=== PATIENT | female | born 1970 | race Caucasian/White ===

== ENCOUNTER → 2018-05-08 17:03 | Outpatient (CLI) | payer OTHER, MEDICAID, SELFPAY | PROVIDERS: Visit Provider Naturopath | DX: M54.30 Sciatica, unspecified side (principal); E34.9 Endocrine disorder, unspecified; Z79.890 Hormone replacement therapy; Z00.00 Encounter for general adult medical examination without abnormal findings ==

== ENCOUNTER → 2018-05-09 16:25 | Outpatient (CLI) | payer OTHER, MEDICAID, SELFPAY ==
[2018-05-09 17:27] LABS: Add Manual Diff / Slide Review NO; Basophils Percent Auto 1.4 % (0-2); Eosinophils Percent Auto 2.8 % (2-4); Hematocrit 39.2 % (36-46); Hemoglobin 13.4 g/dL (12.0-16.0); Lymphocytes Percent Auto 48.8 % (25-40); Mean Corpuscular HGB Conc 34.2 % (30-36); Mean Corpuscular Hemoglobin 34.4 PG (26-34); Mean Corpuscular Volume 100.6 fL (80-100); Monocytes Percent Auto 18.3 % (3-14); Neutrophils Absolute Auto 1500 /uL (3000-5900); Neutrophils Percent Auto 28.7 % (50-75); Platelet Count 280 X10^3/uL (150-400); Red Cell Distribution Width 16.2 % (11.6-14.8); White Blood Cell Count 5.2 X10^3/uL (4.5-11.0)
[2018-05-09 17:51] LABS: Alanine Aminotransferase 78 IU/L (9-52); Albumin 4.5 g/dL (3.5-5.0); Albumin Globulin Ratio 1.4 (1.0-2.8); Alkaline Phosphatase 61 U/L (38-126); Aspartate Aminotransferase 84 IU/L (14-36); Bilirubin Total 0.8 mg/dL (0.2-1.3); Blood Urea Nitrogen 18 mg/dL (7-17); Calcium 9.6 mg/dL (8.4-10.2); Carbon Dioxide 30 mmol/L (22-32); Chloride 103 mmol/L (98-107); Estimated Glomerular Filt Rate > 60.0 mL/min (>60); Globulin 3.3 g/dL (1.7-4.1); Glucose 93 mg/dL (70-100); HEMOLYSIS < 15 (0-50); Potassium 4.3 mmol/L (3.4-5.1); Sodium 140 mmol/L (137-145); Total Protein 7.8 g/dL (6.3-8.2)
[2018-05-09 17:54] LABS: High Sensitivity CRP - Cardiac 1.1 mg/L (1.0-3.0)
[2018-05-09 18:10] LABS: Free T3, Triiodothyronine Free 4.48 pg/mL (2.77-5.27)
[2018-05-09 18:26] LABS: Ferritin 95.2 ng/mL (6.27-137); Testosterone 18.3 ng/dL (5.71-77.0)
[2018-05-11 14:02] LABS: Dehydroepiandrosterone Sulfate 60 mcg/dL (19-231)
[2018-05-11 16:09] LABS: Estradiol 28 pg/mL; Progesterone < 0.5 ng/mL
[2018-05-15 13:18] LABS: Triiodothyronine T3 Reverse 17 ng/dL (8-25)
== END ==
PROVIDERS: Visit Provider Naturopath
DX: E03.9 Hypothyroidism, unspecified (principal); Z00.00 Encounter for general adult medical examination without abnormal findings; E34.9 Endocrine disorder, unspecified; N94.3 Premenstrual tension syndrome; Z79.890 Hormone replacement therapy
CPT/HCPCS: 36415; 80053; 82627; 82670; 82728; 84144; 84403; 84481; 84482; 85025; 86140

== ENCOUNTER → 2018-05-20 14:30 | Outpatient (CLI) | payer OTHER, MEDICAID, SELFPAY ==
--- NOTE | 2018-05-20 14:32 | DI.RAD.S_ITS ---
PROCEDURE: XR FOOT RT MIN 3V INDICATIONS: Foreign body evaluation TECHNIQUE: 3 views of the foot were acquired. COMPARISON: None. FINDINGS: Bones: No fractures or dislocations. No suspicious bony lesions. Postoperative changes are present at the first MTP joint and the first TMT joint. Soft tissues: No tibiotalar joint effusion. Achilles tendon appears normal. IMPRESSION: 1. No unexpected radiopaque foreign bodies. 2. No findings to suggest osteomyelitis; however plain film is less sensitive in the acute phases of osteomyelitis. If there is high clinical suspicion for acute osteomyelitis, MRI with and without contrast is recommended. Dictated by: Louise Malcolm M.D. on 05/20/2018 at 15:04 Approved by: Louise Malcolm M.D. on 05/20/2018 at 15:05
== END ==
PROVIDERS: PCP Naturopath; Visit Provider Physician Assistant
DX: M79.671 Pain in right foot (principal)
CPT/HCPCS: 73630

== ENCOUNTER → 2019-03-12 16:22 | Outpatient (CLI) | payer OTHER, SELFPAY ==
[2019-03-12 17:40] LABS: Add Manual Diff / Slide Review NO; Basophils Absolute Auto 0 /uL (0-100); Basophils Percent Auto 0.9 % (0-2); Eosinophils Absolute Auto 100 /uL (0-450); Eosinophils Percent Auto 2.1 % (2-4); Hematocrit 42.1 % (36-46); Hemoglobin 13.9 g/dL (12.0-16.0); Lymphocytes Absolute Auto 2700 /uL (1100-4500); Mean Corpuscular HGB Conc 32.9 % (30-36); Mean Corpuscular Hemoglobin 33.5 PG (26-34); Mean Corpuscular Volume 101.7 fL (80-100); Monocytes Absolute Auto 300 /uL (0-900); Monocytes Percent Auto 6.8 % (3-14); Neutrophils Absolute Auto 1700 /uL (1500-7000); Neutrophils Percent Auto 35.2 % (50-75); Platelet Count 174 X10^3/uL (150-400); Red Blood Cell Count 4.14 X10^6/uL (4.0-5.2); Red Cell Distribution Width 14.3 % (11.6-14.8); White Blood Cell Count 4.9 X10^3/uL (4.5-11.0)
[2019-03-12 17:53] LABS: Alanine Aminotransferase 67 IU/L (9-52); Albumin 4.9 g/dL (3.5-5.0); Albumin Globulin Ratio 1.4 (1.0-2.8); Alkaline Phosphatase 62 U/L (38-126); Aspartate Aminotransferase 109 IU/L (14-36); Bilirubin Total 0.7 mg/dL (0.2-1.3); Blood Urea Nitrogen 9 mg/dL (7-17); Calcium 9.7 mg/dL (8.4-10.2); Carbon Dioxide 23 mmol/L (22-32); Chloride 104 mmol/L (98-107); Estimated Glomerular Filt Rate > 60.0 mL/min (>60); Globulin 3.4 g/dL (1.7-4.1); Glucose 88 mg/dL (70-100); HEMOLYSIS < 15 (0-50); Potassium 4.2 mmol/L (3.4-5.1); Sodium 143 mmol/L (137-145); Total Protein 8.3 g/dL (6.3-8.2)
[2019-03-12 17:57] LABS: High Sensitivity CRP - Cardiac 1.4 mg/L (1.0-3.0)
[2019-03-12 17:58] LABS: Erythrocyte Sedimentation Rate 10 MM/HR (0-20)
[2019-03-12 18:10] LABS: Vitamin D 25 Hydroxy (D3) 48.1 ng/mL (30.0-100.0)
[2019-03-12 18:13] LABS: Free T3, Triiodothyronine Free 5.81 pg/mL (2.77-5.27); Free T4, Direct Thyroxine 2.07 ng/dL (0.78-2.19)
[2019-03-12 18:26] LABS: Thyroid Stimulating Hormone 0.05 uIU/mL (0.47-4.68)
[2019-03-12 18:29] LABS: Testosterone 29.9 ng/dL (5.71-77.0)
[2019-03-14 14:37] LABS: Dehydroepiandrosterone Sulfate 117 mcg/dL (19-231)
== END ==
PROVIDERS: PCP Student in an Organized Health Care Education/Training Program; Visit Provider Naturopath
DX: Z00.00 Encounter for general adult medical examination without abnormal findings (principal); E03.9 Hypothyroidism, unspecified; R53.83 Other fatigue; E34.9 Endocrine disorder, unspecified; R68.82 Decreased libido
CPT/HCPCS: 36415; 80053; 82306; 82627; 84403; 84439; 84443; 84481; 85025; 85651; 86140

== ENCOUNTER → 2019-10-18 16:22 | Outpatient (CLI) | payer OTHER, SELFPAY ==
[2019-10-18 16:59] LABS: Add Manual Diff / Slide Review NO; Basophils Absolute Auto 100 /uL (0-100); Basophils Percent Auto 0.7 % (0-2); Eosinophils Absolute Auto 200 /uL (0-450); Eosinophils Percent Auto 2.7 % (2-4); Hematocrit 38.6 % (36-46); Hemoglobin 12.9 g/dL (12.0-16.0); Lymphocytes Absolute Auto 2300 /uL (1100-4500); Mean Corpuscular HGB Conc 33.5 % (30-36); Mean Corpuscular Hemoglobin 32.1 PG (26-34); Mean Corpuscular Volume 95.9 fL (80-100); Monocytes Absolute Auto 500 /uL (0-900); Monocytes Percent Auto 6.4 % (3-14); Neutrophils Absolute Auto 5100 /uL (1500-7000); Neutrophils Percent Auto 62.2 % (50-75); Platelet Count 338 X10^3/uL (150-400); Red Blood Cell Count 4.03 X10^6/uL (4.0-5.2); White Blood Cell Count 8.2 X10^3/uL (4.5-11.0)
[2019-10-18 17:30] LABS: Alanine Aminotransferase 16 IU/L (<35); Albumin 4.7 g/dL (3.5-5.0); Albumin Globulin Ratio 1.3 (1.0-2.8); Alkaline Phosphatase 55 U/L (38-126); Aspartate Aminotransferase 29 IU/L (14-36); BUN Creatinine Ratio 13.8 (6-22); Bilirubin Total 0.4 mg/dL (0.2-1.3); Blood Urea Nitrogen 11 mg/dL (7-17); Calcium 10.5 mg/dL (8.4-10.2); Carbon Dioxide 21 mmol/L (22-32); Chloride 105 mmol/L (98-107); Estimated Glomerular Filt Rate > 60.0 mL/min (>60); Globulin 3.7 g/dL (1.7-4.1); Glucose 113 mg/dL (70-100); HEMOLYSIS < 15 (0-50); Potassium 4.7 mmol/L (3.4-5.1); Sodium 140 mmol/L (137-145); Total Protein 8.4 g/dL (6.3-8.2)
[2019-10-18 17:58] LABS: Free T4, Direct Thyroxine 1.44 ng/dL (0.78-2.19); Progesterone, Total 0.64 ng/mL; Thyroid Stimulating Hormone 0.78 uIU/mL (0.47-4.68)
[2019-10-18 18:00] LABS: Testosterone 17.8 ng/dL (5.71-77.0); Vitamin D 25 Hydroxy (D3) 36.8 ng/mL (30.0-100.0)
[2019-10-18 18:11] LABS: Estradiol, Total 20.3 pg/mL
[2019-10-18 18:13] LABS: Erythrocyte Sedimentation Rate 42 MM/HR (0-20)
[2019-10-21 16:13] LABS: ANA Screen, IFA NEGATIVE (NEGATIVE)
[2019-10-22 15:48] LABS: Dehydroepiandrosterone Sulfate 37 mcg/dL (19-231)
== END ==
PROVIDERS: PCP Naturopath; Referring Provider Naturopath; Visit Provider Naturopath
DX: Z00.00 Encounter for general adult medical examination without abnormal findings (principal); R68.82 Decreased libido; R53.83 Other fatigue
CPT/HCPCS: 36415; 80053; 82306; 82627; 82670; 84144; 84403; 84439; 84443; 84481; 85025; 85651; 86038; 86140

== ENCOUNTER → 2020-02-27 14:46 | Outpatient (CLI) | payer OTHER, SELFPAY ==
[2020-02-27 15:18] LABS: Add Manual Diff / Slide Review NO; Basophils Absolute Auto 100 /uL (0-100); Basophils Percent Auto 1.2 % (0-2); Eosinophils Absolute Auto 200 /uL (0-450); Eosinophils Percent Auto 2.6 % (2-4); Hematocrit 37.8 % (36-46); Hemoglobin 12.7 g/dL (12.0-16.0); Lymphocytes Absolute Auto 2500 /uL (1100-4500); Lymphocytes Percent Auto 39.8 % (25-40); Mean Corpuscular HGB Conc 33.7 % (30-36); Mean Corpuscular Hemoglobin 32.5 PG (26-34); Mean Corpuscular Volume 96.4 fL (80-100); Monocytes Absolute Auto 700 /uL (0-900); Monocytes Percent Auto 10.9 % (3-14); Neutrophils Absolute Auto 2900 /uL (1500-7000); Neutrophils Percent Auto 45.5 % (50-75); Platelet Count 268 X10^3/uL (150-400); Red Blood Cell Count 3.92 X10^6/uL (4.0-5.2); Red Cell Distribution Width 14.1 % (11.6-14.8); White Blood Cell Count 6.4 X10^3/uL (4.5-11.0)
[2020-02-27 15:29] LABS: Alanine Aminotransferase 27 IU/L (<35); Albumin 4.6 g/dL (3.5-5.0); Albumin Globulin Ratio 1.3 (1.0-2.8); Alkaline Phosphatase 51 U/L (38-126); Aspartate Aminotransferase 39 IU/L (14-36); Bilirubin Total 0.5 mg/dL (0.2-1.3); Blood Urea Nitrogen 13 mg/dL (7-17); Calcium 10.4 mg/dL (8.4-10.2); Carbon Dioxide 26 mmol/L (22-32); Chloride 103 mmol/L (98-107); Estimated Glomerular Filt Rate > 60.0 mL/min (>60); Globulin 3.5 g/dL (1.7-4.1); Glucose 102 mg/dL (70-100); HEMOLYSIS < 15 (0-50); Potassium 4.4 mmol/L (3.4-5.1); Sodium 138 mmol/L (137-145); Total Protein 8.1 g/dL (6.3-8.2)
[2020-02-27 16:26] LABS: Free T3, Triiodothyronine Free 3.64 pg/mL (2.77-5.27); Free T4, Direct Thyroxine 1.34 ng/dL (0.78-2.19)
[2020-02-27 16:39] LABS: Thyroid Stimulating Hormone 3.53 uIU/mL (0.47-4.68)
== END ==
PROVIDERS: PCP Naturopath; Referring Provider Naturopath; Visit Provider Naturopath
DX: Z00.00 Encounter for general adult medical examination without abnormal findings (principal); E03.9 Hypothyroidism, unspecified; R53.83 Other fatigue
CPT/HCPCS: 36415; 80053; 84439; 84443; 84481; 85025

== ENCOUNTER → 2020-05-25 14:03 | Outpatient (CLI) | payer OTHER, SELFPAY ==
[2020-05-25 16:10] LABS: Alanine Aminotransferase 36 IU/L (<35); Albumin 4.5 g/dL (3.5-5.0); Albumin Globulin Ratio 1.2 (1.0-2.8); Alkaline Phosphatase 62 U/L (38-126); Aspartate Aminotransferase 61 IU/L (14-36); BUN Creatinine Ratio 14.9 (6-22); Bilirubin Total 0.5 mg/dL (0.2-1.3); Blood Urea Nitrogen 10 mg/dL (7-17); Carbon Dioxide 26 mmol/L (22-32); Chloride 101 mmol/L (98-107); Estimated Glomerular Filt Rate > 60.0 mL/min (>60); Globulin 3.9 g/dL (1.7-4.1); Glucose 134 mg/dL (70-100); HEMOLYSIS < 15 (0-50); Potassium 4.1 mmol/L (3.4-5.1); Sodium 137 mmol/L (137-145); Total Protein 8.4 g/dL (6.3-8.2)
[2020-05-25 16:11] LABS: Add Manual Diff / Slide Review NO; Basophils Absolute Auto 100 /uL (0-100); Eosinophils Absolute Auto 100 /uL (0-450); Eosinophils Percent Auto 1.8 % (2-4); Hemoglobin 12.8 g/dL (12.0-16.0); Lymphocytes Absolute Auto 1200 /uL (1100-4500); Lymphocytes Percent Auto 24.5 % (25-40); Mean Corpuscular HGB Conc 33.6 % (30-36); Mean Corpuscular Hemoglobin 34.1 PG (26-34); Mean Corpuscular Volume 101.3 fL (80-100); Monocytes Absolute Auto 500 /uL (0-900); Monocytes Percent Auto 9.4 % (3-14); Neutrophils Absolute Auto 3100 /uL (1500-7000); Neutrophils Percent Auto 63.3 % (50-75); Platelet Count 288 X10^3/uL (150-400); Red Blood Cell Count 3.75 X10^6/uL (4.0-5.2); Red Cell Distribution Width 16.4 % (11.6-14.8); White Blood Cell Count 4.9 X10^3/uL (4.5-11.0)
[2020-05-25 16:27] LABS: Free T3, Triiodothyronine Free 2.93 pg/mL (2.77-5.27); Free T4, Direct Thyroxine 1.32 ng/dL (0.78-2.19)
[2020-05-25 16:41] LABS: Thyroid Stimulating Hormone 2.49 uIU/mL (0.47-4.68)
[2020-05-26 07:35] LABS: Thyroid Peroxidase Antibodies 9 IU/mL (0-34)
[2020-06-01 13:09] LABS: Thyroglobulin Level <2.0 ng/mL (.)
== END ==
PROVIDERS: PCP Naturopath; Referring Provider Naturopath; Visit Provider Naturopath
DX: Z00.00 Encounter for general adult medical examination without abnormal findings (principal); E03.9 Hypothyroidism, unspecified; R53.83 Other fatigue; E34.9 Endocrine disorder, unspecified; R68.82 Decreased libido
CPT/HCPCS: 36415; 80053; 84432; 84439; 84443; 84481; 85025; 86376

== ENCOUNTER 2020-11-12 22:32 | Observation (INO) | payer OTHER, SELFPAY ==
[2020-11-12 22:45] VITALS: BP 130/90; PULSE 106; RESP 22; TEMP 36.5; O2SAT 100; BMI 23.6
--- NOTE | 2020-11-12 22:47 | ED.GENADULT ---
HPI - General Adult General Chief complaint: Abdominal Pain Stated complaint: abd pain getting worse Time Seen by Provider: 11/12/20 22:36 Source: patient Mode of arrival: Ambulatory Limitations: no limitations History of Present Illness HPI narrative: Patient is a 50-year-old female here for evaluation of abdominal pain, distension and nausea without any vomiting. Symptoms started this morning and been worsening throughout the day. She did do a suppository today to help her have a bowel movement and she states this did not help any of her symptoms at all. She has had a stomach ulcer in the past was likely related to alcohol use. She is no prior abdominal surgeries. She states that last evening she did eat approximately 100 chili covered [place]monds and she was concerned that this is potentially causing her symptoms. She describes the pain in her lower abdomen. Related Data Home Medications Medication Instructions Recorded Confirmed levothyroxine [Synthroid] 112 mcg PO QDAY 11/13/20 11/13/20 Allergies Allergy/AdvReac Type Severity Reaction Status Date / Time sulfamethoxazole Allergy Intermediate FACIAL Verified 11/12/20 22:45 [From Bactrim] RASH AND SWELLING trimethoprim [From Bactrim] Allergy Intermediate FACIAL Verified 11/12/20 22:45 RASH AND SWELLING Penicillins [PENICILLINS] Allergy Unknown Verified 11/12/20 22:45 ENVIROMENTAL ALLERGIES Allergy Unknown ECZEMA Uncoded 11/12/20 22:45 Review of Systems Constitutional Constitutional: Denies fever(s) Cardiovascular Cardiovascular: Denies chest pain and Denies dyspnea Respiratory Respiratory: Denies dyspnea Gastrointestinal Gastrointestinal: Reports abdominal pain, Reports bloating, Reports constipation, Reports nausea and Denies vomiting Genitourinary Genitourinary: Denies dysuria Genitourinary: Denies dysuria and Denies vaginal discharge Musculoskeletal Musculoskeletal: Denies arthralgias and Denies myalgias Integumentary/Breasts Skin/Breast: Denies rash Neurologic Neurologic: Denies behavioral changes Psychiatric Psychiatric: Denies behavioral changes Hematologic/Lymphatic On Anticoagulants: No Allergic/Immunologic Allergic/Immunologic: Denies urticaria Patient History Medical History Depression Hyperlipidemia Hypertension Hyperthyroidism Peptic ulcer disease (~12/2016) Seizure (~10/2012) Substance abuse Surgical History (Updated 01/16/19 @ 20:19 by Clare Rico) Status post knee surgery Social History Smoking Status: Current every day smoker Smoking Status: Current every day smoker Substance Use Type: does not use Exam Initial Vital Signs Initial Vital Signs: Vital Signs Temperature 97.7 F 11/12/20 22:45 Pulse Rate 106 H 11/12/20 22:45 Respiratory Rate 22 11/12/20 22:45 Blood Pressure 130/90 11/12/20 22:45 Pulse Oximetry 100 11/12/20 22:45 Const General: cooperative Limitations: mental status not altered HENMT Head: normal to inspection and normocephalic Resp Effort & Inspection: normal respiratory effort Auscultation: clear to auscultation bilaterally Cardio Rate: tachycardic Rhythm: regular rhythm GI Inspection: distended Palpation: soft, guarding and tender Skin Lesions: no lesions Rashes: no rashes Neuro General: patient alert and patient awake Cognition: normal cognition Speech: speech normal Extrem General: capillary refill normal Psych Appearance: grossly normal and well kempt Course Orders Ordered: ED Orders 11/12/20 22:45 Complete Blood Count AUTO DIFF Stat Comprehensive Metabolic Panel Stat Lactate (Lactic Acid) Stat Lipase Stat Test Serum,Qual Stat 11/12/20 22:49 CT abdomen pelvis w con Stat 11/12/20 23:30 UA dip and micro [Urinalysis and Microscopic] Stat Urine Culture Stat 11/13/20 00:49 COVID19 - ADMIT (BEHAVIORAL HEALTH TECHNICIAN swab/PCR) Stat 11/13/20 01:02 Consult to General Surgery Urgent Hydromorphone HCl (Hydromorphone 0.5 Mg Inj) 0.5 mg IV Q2H PRN PRN Reason: Pain, Mild (1-3) Sodium Chloride (Normal Saline 0.9%) 1,000 mls @ 125 mls/hr IV CONT RUPERT Last Infusion: 11/13/20 01:30 Dose: 125 mls/hr Documented by: Admin: 11/13/20 01:10 Dose: 125 mls/hr Documented by: MARIA LUISA Ondansetron HCl (Ondansetron 4 Mg/2 Ml Inj) 4 mg IV Q4HR PRN PRN Reason: Nausea And Vomiting Discontinued Medications Hydromorphone HCl (Hydromorphone 1 Mg Inj) 1 mg IV NOW ONE Stop: 11/13/20 00:02 Last Admin: 11/13/20 00:04 Dose: 1 mg Documented by: MARIA LUISA Sodium Chloride (Normal Saline 0.9%) 1,000 mls @ 1,000 mls/hr IV BOLUS ONE Stop: 11/12/20 23:46 Last Infusion: 11/13/20 00:48 Dose: 0 mls/hr Documented by: Admin: 11/12/20 22:53 Dose: 1,000 mls/hr Documented by: DALE Ceftriaxone Sodium/Dextrose (Rocephin) 1 gm in 50 mls @ 100 mls/hr IV NOW ONE Stop: 11/13/20 01:31 Last Infusion: 11/13/20 01:42 Dose: 0 mls/hr Documented by: Infusion: 11/13/20 01:29 Dose: 100 mls/hr Documented by: Admin: 11/13/20 01:10 Dose: 100 mls/hr Documented by: MARIA LUISA Ketorolac Tromethamine (Ketorolac 60 Mg/2 Ml Vial) 30 mg IV NOW ONE Stop: 11/12/20 22:48 Last Admin: 11/12/20 22:53 Dose: 30 mg Documented by: DALE Pantoprazole Sodium (Pantoprazole 40 Mg Vial) 40 mg IV NOW ONE Stop: 11/12/20 22:48 Last Admin: 11/12/20 22:53 Dose: 40 mg Documented by: DALE Vital Signs Vital signs: Vital Signs - 8 hr 11/12/20 22:45 11/12/20 23:36 11/13/20 00:00 Temperature 97.7 F Pulse Rate 106 H 94 H 85 Respiratory Rate 22 Blood Pressure 130/90 Pulse Oximetry 100 92 99 11/13/20 00:09 11/13/20 00:30 11/13/20 01:00 Temperature Pulse Rate 93 H 85 84 Respiratory Rate Blood Pressure 126/76 119/72 121/82 Pulse Oximetry 95 99 98 Medical Decision Making Lab Data Lab results reviewed: Yes I reviewed the patient's lab results. Result diagrams: 11/12/20 22:45 11/12/20 22:45 Labs: Lab Results 11/12/20 11/12/20 11/12/20 Range/Units 22:45 22:45 22:45 WBC 13.4 H (4.5-11.0) X10^3/uL RBC 4.08 (4.0-5.2) X10^6/uL Hgb 13.4 (12.0-16.0) g/dL Hct 40.5 (36-46) % MCV 99.2 (80-100) fL MCH 32.7 (26-34) PG MCHC 33.0 (30-36) % RDW 14.0 (11.6-14.8) % Plt Count 371 (150-400) X10^3/uL Neut % (Auto) 63.0 (50-75) % Lymph % (Auto) 23.8 L (25-40) % [place] % (Auto) 8.5 (3-14) % Eos % (Auto) 3.9 (2-4) % Baso % (Auto) 0.8 (0-2) % Neut # (Auto) 8500 H (0293-7175) /uL Lymph # (Auto) 3200 (7301-6430) /uL [place] # (Auto) 1100 H (0-900) /uL Eos # (Auto) 500 H (0-450) /uL Baso # (Auto) 100 (0-100) /uL Sodium 139 (137-145) mmol/L Potassium 4.5 (3.4-5.1) mmol/L Chloride 102 (98-107) mmol/L Carbon Dioxide 30 (22-32) mmol/L BUN 15 (7-17) mg/dL Creatinine 0.65 (0.52-1.04) mg/dL Estimated GFR > 60.0 (>60) mL/min BUN/Creatinine Ratio 23.1 H (6-22) Glucose 107 H (70-100) mg/dL Lactate (0.7-2.1) mmol/L Calcium 11.3 H (8.4-10.2) mg/dL Total Bilirubin 0.5 (0.2-1.3) mg/dL AST 39 H (14-36) IU/L ALT 21 (<35) IU/L Alkaline Phosphatase 58 (38-126) U/L Total Protein 9.6 H (6.3-8.2) g/dL Albumin 5.1 H (3.5-5.0) g/dL Globulin 4.5 H (1.7-4.1) g/dL Albumin/Globulin Ratio 1.1 (1.0-2.8) Lipase 97 (23-300) U/L Serum , Qual (Negative) Urine Color Urine Appearance Urine pH (4.5-8.0) Ur Specific [place] (1.000-1.035) Urine Protein (Negative) Urine Glucose (UA) (Negative) g/dL Urine Ketones (NEGATIVE) Urine Occult Blood (Negative) Urine Nitrate (Negative) Urine Bilirubin (NEGATIVE) Urine Urobilinogen (0.2) E.U./dL Ur Leukocyte Esterase (NEGATIVE) Urine RBC (0-5/HPF) Urine WBC (0-5/HPF) Ur Squamous Epith Cells (0-5/HPF) Ur Renal Epithelial Cell (0-1/HPF) Calcium Oxalate Crystal Urine Bacteria (None) Ur Culture Indicated? 11/12/20 11/12/20 11/12/20 Range/Units 22:45 22:45 23:30 WBC (4.5-11.0) X10^3/uL RBC (4.0-5.2) X10^6/uL Hgb (12.0-16.0) g/dL Hct (36-46) % MCV (80-100) fL MCH (26-34) PG MCHC (30-36) % RDW (11.6-14.8) % Plt Count (150-400) X10^3/uL Neut % (Auto) (50-75) % Lymph % (Auto) (25-40) % [place] % (Auto) (3-14) % Eos % (Auto) (2-4) % Baso % (Auto) (0-2) % Neut # (Auto) (4419-8349) /uL Lymph # (Auto) (4247-3318) /uL [place] # (Auto) (0-900) /uL Eos # (Auto) (0-450) /uL Baso # (Auto) (0-100) /uL Sodium (137-145) mmol/L Potassium (3.4-5.1) mmol/L Chloride (98-107) mmol/L Carbon Dioxide (22-32) mmol/L BUN (7-17) mg/dL Creatinine (0.52-1.04) mg/dL Estimated GFR (>60) mL/min BUN/Creatinine Ratio (6-22) Glucose (70-100) mg/dL Lactate 1.5 (0.7-2.1) mmol/L Calcium (8.4-10.2) mg/dL Total Bilirubin (0.2-1.3) mg/dL AST (14-36) IU/L ALT (<35) IU/L Alkaline Phosphatase (38-126) U/L Total Protein (6.3-8.2) g/dL Albumin (3.5-5.0) g/dL Globulin (1.7-4.1) g/dL Albumin/Globulin Ratio (1.0-2.8) Lipase (23-300) U/L Serum , Qual Negative (Negative) Urine Color Yellow Urine Appearance Slightly cloudy Urine pH 5.0 (4.5-8.0) Ur Specific [place] 1.025 (1.000-1.035) Urine Protein Trace H (Negative) Urine Glucose (UA) Negative (Negative) g/dL Urine Ketones Trace H (NEGATIVE) Urine Occult Blood Negative (Negative) Urine Nitrate Negative (Negative) Urine Bilirubin Negative (NEGATIVE) Urine Urobilinogen 0.2 (0.2) E.U./dL Ur Leukocyte Esterase 1+ H (NEGATIVE) Urine RBC None seen (0-5/HPF) Urine WBC 30-100/hpf H (0-5/HPF) Ur Squamous Epith Cells 1-5 /hpf (0-5/HPF) Ur Renal Epithelial Cell 1-5/hpf H (0-1/HPF) Calcium Oxalate Crystal Few H Urine Bacteria Few (2-10) H (None) Ur Culture Indicated? Specimen cultured Imaging Data CT scan - abdomen/pelvis: Radiologist's Impression: Moderate small-bowel obstruction versus enteritis or ileus. Possible transition point in the right lower quadrant. Bladder wall thickening, could be due to to cystitis or under distention. MDM Narrative Medical decision making narrative: Has a leukocytosis. CT scan concerning for ileus versus bowel obstruction. This does fit with her clinical presentation. She is afebrile. Improvement with medications. Bladder wall thickening on the CT scan and has bacteria and white blood cells and dark colored urine. Was given antibiotics for this here in the ER. Discussed the case with Dr. Mi who is on-call for General surgery who will admit for further evaluation treatment. Discussed the findings with the patient and her is at bedside. They expressed understanding agreement. Discharge Plan Departure Patient Disposition: Admitted As Inpatient Clinical Impression: Small bowel obstruction, Urinary tract infection Admit Date/Time: 11/13/20 01:40 Admit Provider: Vu Mi
--- NOTE | 2020-11-12 22:49 | DI.CT.S_ITS ---
PROCEDURE: CT ABDOMEN PELVIS W CON INDICATIONS: Generalized abdominal pain TECHNIQUE: After the administration of intravenous contrast, 5 mm thick sections acquired from the diaphragm to the symphysis. 5 mm coronal and sagittal reformats were acquired. For radiation dose reduction, the following was used: automated exposure control, adjustment of mA and/or kV according to patient size. COMPARISON: [facility], CT, ABDOMEN/PELVIS WITH CONTRAST, 12/16/2016, 14:42. FINDINGS: Image quality: Excellent. ABDOMEN: Lung bases: Mild atelectasis at the right lung base. No pleural effusion. Heart size is normal. Small hiatal hernia. Solid organs: Liver is normal in size and enhancement. Gallbladder is unremarkable. Biliary system is non dilated. Pancreas enhances normally. Spleen is normal in size and enhancement. No adrenal nodules. Kidneys demonstrate normal size and enhancement, without hydronephrosis. Small simple left renal cyst. Peritoneum and bowel: The stomach is fluid-filled but not significantly distended. Diffuse in the small bowel dilatation which is mostly fluid-filled. There are a few small air-fluid levels. No discrete transition point. The terminal ileum is not significantly dilated. However, there is mural enhancement and fecalization in the ileum and the bowel dilatation appears to extend upstream from this site. There is minimal adjacent mesenteric edema. There is liquid stool contents in the right colon. Otherwise the majority of the colon is decompressed. A few colonic diverticuli. The appendix is not distended. No pneumatosis intestinalis. No ascites or pneumoperitoneum. Nodes and vessels: No retroperitoneal or mesenteric adenopathy by size criteria. Aorta and inferior vena cava are normal in size. No portal venous gas. Miscellaneous: No ventral hernias. PELVIS: Genitourinary: Bladder is mostly decompressed limiting evaluation. Anteverted uterus4 no free fluid in the pelvis. Miscellaneous: No inguinal hernias or adenopathy. Bones: No suspicious bony lesions. T12 Schmorl's node versus mild compression fracture. IMPRESSION: 1. Diffuse small bowel dilatation which appears to emanate upstream from the ileum in the right lower quadrant. The ileum demonstrates fecalization, suspected mural enhancement, and adjacent mesenteric edema. Suspect small bowel obstruction. Enteritis or adynamic ileus could have a similar appearance. 2. The appendix is not dilated. 3. A few colonic diverticuli. No diverticulitis. 4. No pneumoperitoneum. No ascites. No significant discrepancy with the overnight preliminary interpretation Dictated by: Jm Trotter M.D. on 11/13/2020 at 7:54 Approved by: Jm Trotter M.D. on 11/13/2020 at 8:08
[2020-11-12] MEDS: PANTOPRAZOLE 40 MG VIAL IV (22:53)
[2020-11-12] MEDS: KETOROLAC 60 MG/2 ML VIAL 30 MG IV (22:53)
[2020-11-12] MEDS: SODIUM CHLORIDE 0.9% 1,000 ML 1000 ML IV (22:53)
[2020-11-12 23:00] LABS: Add Manual Diff / Slide Review NO; Basophils Absolute Auto 100 /uL (0-100); Basophils Percent Auto 0.8 % (0-2); Eosinophils Absolute Auto 500 /uL (0-450); Eosinophils Percent Auto 3.9 % (2-4); Hematocrit 40.5 % (36-46); Hemoglobin 13.4 g/dL (12.0-16.0); Lymphocytes Absolute Auto 3200 /uL (1100-4500); Lymphocytes Percent Auto 23.8 % (25-40); Mean Corpuscular Hemoglobin 32.7 PG (26-34); Mean Corpuscular Volume 99.2 fL (80-100); Monocytes Absolute Auto 1100 /uL (0-900); Monocytes Percent Auto 8.5 % (3-14); Neutrophils Absolute Auto 8500 /uL (1500-7000); Platelet Count 371 X10^3/uL (150-400); Red Blood Cell Count 4.08 X10^6/uL (4.0-5.2); White Blood Cell Count 13.4 X10^3/uL (4.5-11.0)
[2020-11-12 23:02] LABS: Lipase 97 U/L (23-300)
[2020-11-12 23:03] LABS: Alanine Aminotransferase 21 IU/L (<35); Albumin 5.1 g/dL (3.5-5.0); Albumin Globulin Ratio 1.1 (1.0-2.8); Alkaline Phosphatase 58 U/L (38-126); Aspartate Aminotransferase 39 IU/L (14-36); BUN Creatinine Ratio 23.1 (6-22); Bilirubin Total 0.5 mg/dL (0.2-1.3); Blood Urea Nitrogen 15 mg/dL (7-17); Calcium 11.3 mg/dL (8.4-10.2); Carbon Dioxide 30 mmol/L (22-32); Chloride 102 mmol/L (98-107); Estimated Glomerular Filt Rate > 60.0 mL/min (>60); Globulin 4.5 g/dL (1.7-4.1); Glucose 107 mg/dL (70-100); HEMOLYSIS 37 (0-50); Potassium 4.5 mmol/L (3.4-5.1); Sodium 139 mmol/L (137-145); Total Protein 9.6 g/dL (6.3-8.2)
[2020-11-12 23:15] LABS: Pregnancy Test Serum,Qual Negative (Negative)
[2020-11-12 23:36] VITALS: PULSE 94; O2SAT 92
[2020-11-12 23:47] LABS: RBC Urine None Seen (0-5/HPF)
[2020-11-12 23:48] LABS: Bilirubin Urine UA NEGATIVE (NEGATIVE); Color Urine UA YELLOW; Glucose Urine UA NEGATIVE (Negative); Ketones Urine UA TRACE (NEGATIVE); Leukocyte Esterase Urine UA 1+ (NEGATIVE); Nitrite Urine UA NEGATIVE (Negative); Occult Blood Urine UA NEGATIVE (Negative); Protein Urine UA TRACE (Negative); Specific Gravity Urine UA 1.025 (1.000-1.035); Urobilinogen Urine UA 0.2 E.U./dL (0.2)
[2020-11-12 23:49] LABS: Appearance Urine UA Slightly Cloudy
[2020-11-13] VITALS (7 sets, daily range): BP systolic 119–132; BP diastolic 72–82; PULSE 84–95; RESP 16–20; TEMP 36.2–36.4; O2SAT 95–100; BMI 23.6
[2020-11-13 00:04] LABS: Lactate (Lactic Acid) 1.5 mmol/L (0.7-2.1)
[2020-11-13 00:04] LABS: WBC Urine 30-100/HPF (0-5/HPF)
[2020-11-13] MEDS: HYDROMORPHONE 1 MG INJ IV (00:04)
[2020-11-13 00:05] LABS: Bacteria Urine Few (2-10); Calcium Oxalate Crystals Urine Few; Culture Indicated Urine Specimen Cultured; Renal Epithelial Cells Urine 1-5/HPF (0-1/HPF); Squamous Epithelial Cell Urine 1-5 /HPF (0-5/HPF)
[2020-11-13] MEDS: CEFTRIAXONE 1 GM/50 ML FROZ.PIGGY IV (01:10)
[2020-11-13] MEDS: SODIUM CHLORIDE 0.9% 1,000 ML 125 ML IV (01:10)
[2020-11-13 02:07] LABS: COVID19 - ADMIT (NP swab/PCR) Negative (Negative)
--- NOTE | 2020-11-13 02:56 | PC.NURSE ---
Addendum entered by Letha Anders R.N. 11/13/20 03:23: Patient does not want her voids measured. Original Note: Admission note: Patient arrived via stretcher accompanied by ED RN, transferred self to inpatient bed. Hx of recent falls with a broken left patella that she's currently doing physical therapy for. AxOx3, can make needs known but is highly anxious and labile regarding her admission to the floor and course of treatment, coordinator is aware. Became angry and tearful regarding UTI diagnosis and states she was not informed of such. Attempted to use therapeutic communication. C/o abdominal pain that is radiating to her back and cramping in nature, has not been able to pass gas. All other systems WNL.
--- NOTE | 2020-11-13 03:17 | PC.NURSE ---
0225 Primary RN called on Evita to state that I come speak with Ms. Maldonado and that she wanted to talk to me immediately. The patient was obviously very angry and stated that she wasn't told that she had a urinary tract infection and didn't know until Gloria had told her. She stated that it was illegal to withhold this information from a patient. I told her that I was sorry that she wasn't aware of these circumstances, but the ED does multiple tests to determine the cause of abdominal pain. She told me she didn't have her cell phone and she would call her in the morning and they would, take care of this. I expressed that I was sorry that she was so upset, and I would be willing to call her for her and she declined. I told her that if there was something that I could help her with during the night to let me know. She stated that I had been no help to her. I told her that I would pass on her concerns to the appropriate linen room supervisor in the morning.
[2020-11-13] MEDS: HYDROMORPHONE 0.5 MG INJ IV ×2 (03:49→08:00)
--- NOTE | 2020-11-13 07:50 | P.HP_ITS ---
History of Present Illness History of Present Illness Date Patient Seen: 11/13/20 Time Patient Seen: 07:50 Chief complaint: abd pain getting worse Narrative: 50F hx of hypothyroidism who is admitted for a small bowel obstruction. No history of prior abdominal surgery or intra abdominal infection. She presented to the emergency room last night with complaint of abdominal pain nausea bloating no emesis. No prior similar episodes. No bowel movement yesterday. No dysuria howerver a UA demonstrated WBCs epithelial cells and few urine bacteria culture was sent and she recieved 1 dose of ceftriaxone. At admission WBC 13 CT A/P -dilated loops of small bowel no clear transition point per my read no free air or fluid This AM she is without any abdominal discomfort she has had a bowel movement overnight, no nausea or vomiting. Patient History Medical History Depression Hyperlipidemia Hypertension Hyperthyroidism Peptic ulcer disease (~12/2016) Seizure (~10/2012) Substance abuse Surgical History Status post knee surgery Family & Social History Social History: household members spouse Prior Living Arrangements House Safety & Behavioral: Feels Safe in Current Yes Environment Been Physically Hurt or No Threatened By a Person Suicidal Ideation Description None Suicide Plan Description No Plan Tobacco & Substance use: Tobacco type cigarettes Smoking Status Current every day smoker Smoking packs per day 0.5 alcohol intake former Substance Use Type does not use Meds Home Medications and Allergies Home Medications Medication Instructions Recorded Confirmed Type levothyroxine [Synthroid] 112 mcg PO QDAY 11/13/20 11/13/20 History Allergies Allergy/AdvReac Type Severity Reaction Status Date / Time sulfamethoxazole Allergy Intermediate FACIAL Verified 11/12/20 22:45 [From Bactrim] RASH AND SWELLING trimethoprim [From Bactrim] Allergy Intermediate FACIAL Verified 11/12/20 22:45 RASH AND SWELLING Penicillins [PENICILLINS] Allergy Unknown Verified 11/12/20 22:45 ENVIROMENTAL ALLERGIES Allergy Unknown ECZEMA Uncoded 11/12/20 22:45 Review of Systems Review of Systems ROS: Yes All systems reviewed with the patient and are negative except as otherwise documented Exam Vital Signs (past 8 hours): - 11/13/20 00:00 11/13/20 00:09 11/13/20 00:30 Temperature Pulse Rate 85 93 H 85 Respiratory Rate Blood Pressure 126/76 119/72 Pulse Oximetry 99 95 99 11/13/20 01:00 11/13/20 01:40 Temperature 97.6 F Pulse Rate 84 84 Respiratory Rate 20 Blood Pressure 121/82 132/75 Pulse Oximetry 98 98 Oxygen Delivery Method Room Air Oxygen Flow Rate 0 Narrative Exam Narrative: General-no acute distress, well nourished adult female HEENT-moist mucous membranes, no scleral icterus Neck-supple, no lymphadenopathy Chest- non labored respirations, clear to auscultation bilaterally Cardiac-regular rate no peripheral edema Abdomen-soft, nontender, non distended Extremities-warm, well perfused Neurological-alert and oriented, no focal deficits Objective Labs Result Diagrams: 11/12/20 22:45 11/12/20 22:45 Labs: Laboratory Results - last 24 hr 11/12/20 11/12/20 11/12/20 22:45 22:45 22:45 WBC 13.4 H RBC 4.08 Hgb 13.4 Hct 40.5 MCV 99.2 MCH 32.7 MCHC 33.0 RDW 14.0 Plt Count 371 Neut % (Auto) 63.0 Lymph % (Auto) 23.8 L [place] % (Auto) 8.5 Eos % (Auto) 3.9 Baso % (Auto) 0.8 Neut # (Auto) 8500 H Lymph # (Auto) 3200 [place] # (Auto) 1100 H Eos # (Auto) 500 H Baso # (Auto) 100 Sodium 139 Potassium 4.5 Chloride 102 Carbon Dioxide 30 BUN 15 Creatinine 0.65 Estimated GFR > 60.0 BUN/Creatinine Ratio 23.1 H Glucose 107 H Lactate Calcium 11.3 H Total Bilirubin 0.5 AST 39 H ALT 21 Alkaline Phosphatase 58 Total Protein 9.6 H Albumin 5.1 H Globulin 4.5 H Albumin/Globulin Ratio 1.1 Lipase 97 Serum , Qual Urine Color Urine Appearance Urine pH Ur Specific [place] Urine Protein Urine Glucose (UA) Urine Ketones Urine Occult Blood Urine Nitrate Urine Bilirubin Urine Urobilinogen Ur Leukocyte Esterase Urine RBC Urine WBC Ur Squamous Epith Cells Ur Renal Epithelial Cell Calcium Oxalate Crystal Urine Bacteria Ur Culture Indicated? SARS-CoV-2 (PCR) 11/12/20 11/12/20 11/12/20 22:45 22:45 23:30 WBC RBC Hgb Hct MCV MCH MCHC RDW Plt Count Neut % (Auto) Lymph % (Auto) [place] % (Auto) Eos % (Auto) Baso % (Auto) Neut # (Auto) Lymph # (Auto) [place] # (Auto) Eos # (Auto) Baso # (Auto) Sodium Potassium Chloride Carbon Dioxide BUN Creatinine Estimated GFR BUN/Creatinine Ratio Glucose Lactate 1.5 Calcium Total Bilirubin AST ALT Alkaline Phosphatase Total Protein Albumin Globulin Albumin/Globulin Ratio Lipase Serum , Qual Negative Urine Color Yellow Urine Appearance Slightly cloudy Urine pH 5.0 Ur Specific [place] 1.025 Urine Protein Trace H Urine Glucose (UA) Negative Urine Ketones Trace H Urine Occult Blood Negative Urine Nitrate Negative Urine Bilirubin Negative Urine Urobilinogen 0.2 Ur Leukocyte Esterase 1+ H Urine RBC None seen Urine WBC 30-100/hpf H Ur Squamous Epith Cells 1-5 /hpf Ur Renal Epithelial Cell 1-5/hpf H Calcium Oxalate Crystal Few H Urine Bacteria Few (2-10) H Ur Culture Indicated? Specimen cultured SARS-CoV-2 (PCR) 11/13/20 01:00 WBC RBC Hgb Hct MCV MCH MCHC RDW Plt Count Neut % (Auto) Lymph % (Auto) [place] % (Auto) Eos % (Auto) Baso % (Auto) Neut # (Auto) Lymph # (Auto) [place] # (Auto) Eos # (Auto) Baso # (Auto) Sodium Potassium Chloride Carbon Dioxide BUN Creatinine Estimated GFR BUN/Creatinine Ratio Glucose Lactate Calcium Total Bilirubin AST ALT Alkaline Phosphatase Total Protein Albumin Globulin Albumin/Globulin Ratio Lipase Serum , Qual Urine Color Urine Appearance Urine pH Ur Specific [place] Urine Protein Urine Glucose (UA) Urine Ketones Urine Occult Blood Urine Nitrate Urine Bilirubin Urine Urobilinogen Ur Leukocyte Esterase Urine RBC Urine WBC Ur Squamous Epith Cells Ur Renal Epithelial Cell Calcium Oxalate Crystal Urine Bacteria Ur Culture Indicated? SARS-CoV-2 (PCR) Negative Assessment & Plan Assessment and plan (1) Small bowel obstruction: Status: Acute Assessment & Plan narrative: 50F hx of hypothyroidism no prior abdominal surgery admitted for a small bowel obstruction. Laboratory studies and imaging reviewed. CT A/P demonstrates dilated small bowel with air fluid levels no transition point no free air or fluid. Since admission she has complete resolution of her abdominal pain and a bowel movement. I suspect her obstruction is resolving and no surgical intervention will be necessary. -Start clear liquids -Advance diet as tolerated -If tolerates diet and remains without abdominal pain OK to discharge -F/U UA culture however clinically no evidence of a UTI suspect specimen was contaminated -SCDs for VTE prophylaxis Quality VTE Deep Vein Thrombosis/Pulmonary Embolism Present on Admission: No
[2020-11-13] MEDS: ONDANSETRON 4 MG/2 ML INJ IV (08:01)
--- NOTE | 2020-11-13 08:46 | PC.NURSE ---
Addendum entered by Chelsea Rodriguez R.N. 11/13/20 11:17: Patient given discharge instructions regarding pain management, follow up if symptoms worsen or pain changes in characteristic and diet. Patient verbalized understanding. Given Tylenol before discharge to manage discomfort with movement. IV removed. Patient tolerated. Patient discharged via wheelchair with aide assist. Original Note: Patient A/O x 4. Resting in bed, c/o sharp, sometimes stabbing pain across lower abdomen 3/10 at rest and 5/10 with movement. Requests IV dilaudid to decrease risk of break through pain. Administered PRN. Patient also request Zofran d/t intermittent nausea. Denies vomiting. PRN Zofran administered. Saline locked per orders at this time. IV patent in L hand. Patient ambulating to restroom independently, denies dizziness, lightheadedness or chest pain. Loose BM noted. BT active x 4. Lungs CTA. Patient on room air, denies SOB. Cardiac WNL. Call light in reach. Tolerating clear liquids at this time.
[2020-11-13] MEDS: ACETAMINOPHEN 325 MG TABLET 650 MG PO (10:22)
--- NOTE | 2020-11-13 15:38 | CM.DANOTE ---
DCP: assessment: case received this morning and discussed in Team Rounds. Pt is a 50 year old female who was admitted early this mornin to care of [place] [facility]: Dr. Mi. Payer : Galdino Mi was here seeing pt at time of Rounds and she was d/c'd to home at 11:17. LOS < 12 hours. No concerns re the d/c today were reported by the care team members.
== END 2020-11-13 11:00 | disposition home or self-care (01) ==
LOC: ED 11-13 00:20 → AC 11-13 07:14
PROVIDERS: Admitting Provider Surgery; Emergency Provider Emergency Medicine; PCP Naturopath; Referring Provider Emergency Medicine; Visit Provider Surgery
DX: K56.609 Unspecified intestinal obstruction, unspecified as to partial versus complete obstruction (principal); F17.210 Nicotine dependence, cigarettes, uncomplicated; E03.9 Hypothyroidism, unspecified; Z20.822 Contact with and (suspected) exposure to COVID-19
CPT/HCPCS: 36415; 74177; 80053; 81001; 83605; 83690; 84703; 85025; 87077; 87086; 87186; 87635; 96361; 96365; 96375; 96376; 99218; 99284; G0378; C9113; J1170; J1885; J2405; Q9967

== ENCOUNTER → 2020-11-17 15:50 | Outpatient (CLI) | payer OTHER, SELFPAY ==
[2020-11-13 01:42] VITALS: BMI 23.6
[2020-11-17 16:35] LABS: Add Manual Diff / Slide Review NO; Basophils Absolute Auto 100 /uL (0-100); Basophils Percent Auto 1.2 % (0-2); Eosinophils Absolute Auto 300 /uL (0-450); Hematocrit 36.9 % (36-46); Hemoglobin 12.1 g/dL (12.0-16.0); Lymphocytes Absolute Auto 2400 /uL (1100-4500); Lymphocytes Percent Auto 32.8 % (25-40); Mean Corpuscular HGB Conc 32.9 % (30-36); Mean Corpuscular Hemoglobin 32.5 PG (26-34); Mean Corpuscular Volume 98.6 fL (80-100); Monocytes Absolute Auto 500 /uL (0-900); Monocytes Percent Auto 6.6 % (3-14); Neutrophils Absolute Auto 4000 /uL (1500-7000); Neutrophils Percent Auto 55.4 % (50-75); Platelet Count 312 X10^3/uL (150-400); Red Blood Cell Count 3.74 X10^6/uL (4.0-5.2); Red Cell Distribution Width 13.4 % (11.6-14.8); White Blood Cell Count 7.2 X10^3/uL (4.5-11.0)
[2020-11-17 16:51] LABS: Alanine Aminotransferase 14 IU/L (<35); Albumin 4.5 g/dL (3.5-5.0); Albumin Globulin Ratio 1.3 (1.0-2.8); Alkaline Phosphatase 46 U/L (38-126); Aspartate Aminotransferase 24 IU/L (14-36); Bilirubin Total 0.2 mg/dL (0.2-1.3); Blood Urea Nitrogen 20 mg/dL (7-17); Calcium 10.2 mg/dL (8.4-10.2); Carbon Dioxide 29 mmol/L (22-32); Chloride 102 mmol/L (98-107); Estimated Glomerular Filt Rate > 60.0 mL/min (>60); Globulin 3.4 g/dL (1.7-4.1); Glucose 99 mg/dL (70-100); HEMOLYSIS < 15 (0-50); Potassium 4.3 mmol/L (3.4-5.1); Sodium 138 mmol/L (137-145); Total Protein 7.9 g/dL (6.3-8.2)
[2020-11-17 16:56] LABS: High Sensitivity CRP - Cardiac 10.1 mg/L (1.0-3.0)
[2020-11-17 17:20] LABS: Erythrocyte Sedimentation Rate 34 MM/HR (0-20)
[2020-11-17 17:24] LABS: Free T4, Direct Thyroxine 1.08 ng/dL (0.78-2.19)
[2020-11-17 18:15] LABS: Appearance Urine UA CLEAR; Bilirubin Urine UA NEGATIVE (NEGATIVE); Color Urine UA YELLOW; Glucose Urine UA NEGATIVE (Negative); Ketones Urine UA NEGATIVE (NEGATIVE); Leukocyte Esterase Urine UA NEGATIVE (NEGATIVE); Nitrite Urine UA NEGATIVE (Negative); Occult Blood Urine UA NEGATIVE (Negative); Protein Urine UA NEGATIVE (Negative); Urobilinogen Urine UA 0.2 E.U./dL (0.2)
[2020-11-17 18:17] LABS: Thyroid Stimulating Hormone 3.45 uIU/mL (0.47-4.68)
[2020-11-17 18:20] LABS: pH Urine UA 5.5 (4.5-8.0)
[2020-11-17 18:34] LABS: Bacteria Urine Occasional (0-1); Culture Indicated Urine Specimen Cultured; RBC Urine 0-1/HPF (0-5/HPF); Squamous Epithelial Cell Urine 1-5 /HPF (0-5/HPF); Transitional Epi Cells Urine 1-5/HPF (0-5/HPF); WBC Urine 5-10/HPF (0-5/HPF)
[2020-11-18 07:09] LABS: Parathyroid Hormone Int 37 pg/mL (15-65)
[2020-11-19 14:08] LABS: ANA Screen, IFA Negative (.)
== END ==
PROVIDERS: PCP Naturopath; Referring Provider Naturopath; Visit Provider Naturopath
DX: Z00.00 Encounter for general adult medical examination without abnormal findings (principal); E03.9 Hypothyroidism, unspecified; E34.50 Androgen insensitivity syndrome, unspecified; R53.83 Other fatigue; K29.70 Gastritis, unspecified, without bleeding
CPT/HCPCS: 36415; 80053; 81001; 83970; 84439; 84443; 84481; 85025; 85651; 86038; 86140; 87086

== ENCOUNTER 2020-11-23 22:00 | Inpatient (IN) | payer OTHER, SELFPAY ==
[2020-11-13 01:42] VITALS: BMI 23.6
[2020-11-23 22:08] VITALS: BP 126/85; PULSE 123; RESP 18; TEMP 36.5; O2SAT 99
[2020-11-23 22:40] LABS: Add Manual Diff / Slide Review NO; Basophils Absolute Auto 100 /uL (0-100); Basophils Percent Auto 1.1 % (0-2); Eosinophils Absolute Auto 300 /uL (0-450); Eosinophils Percent Auto 2.1 % (2-4); Hematocrit 39.6 % (36-46); Hemoglobin 13.3 g/dL (12.0-16.0); Lymphocytes Absolute Auto 3200 /uL (1100-4500); Lymphocytes Percent Auto 25.2 % (25-40); Mean Corpuscular HGB Conc 33.5 % (30-36); Mean Corpuscular Hemoglobin 32.5 PG (26-34); Mean Corpuscular Volume 97.1 fL (80-100); Monocytes Absolute Auto 1000 /uL (0-900); Monocytes Percent Auto 7.7 % (3-14); Neutrophils Absolute Auto 8100 /uL (1500-7000); Neutrophils Percent Auto 63.9 % (50-75); Platelet Count 357 X10^3/uL (150-400); Red Blood Cell Count 4.08 X10^6/uL (4.0-5.2); Red Cell Distribution Width 13.6 % (11.6-14.8); White Blood Cell Count 12.7 X10^3/uL (4.5-11.0)
[2020-11-23 22:41] LABS: INR 1.3 (0.9-1.3); Prothrombin Time 14.7 SECONDS (10.1-12.7)
[2020-11-23 22:42] VITALS: BP 126/85; PULSE 118; RESP 18; O2SAT 98
[2020-11-23 22:44] LABS: PTT Partial Thromboplastin Tim 36 SECONDS (26.4-36.2)
[2020-11-23 22:45] LABS: Alanine Aminotransferase 17 IU/L (<35); Albumin Globulin Ratio 1.2 (1.0-2.8); Alkaline Phosphatase 50 U/L (38-126); Aspartate Aminotransferase 27 IU/L (14-36); BUN Creatinine Ratio 27.3 (6-22); Bilirubin Total 0.4 mg/dL (0.2-1.3); Blood Urea Nitrogen 18 mg/dL (7-17); Calcium 11.3 mg/dL (8.4-10.2); Carbon Dioxide 19 mmol/L (22-32); Chloride 108 mmol/L (98-107); Estimated Glomerular Filt Rate > 60.0 mL/min (>60); Globulin 4.1 g/dL (1.7-4.1); Glucose 117 mg/dL (70-100); HEMOLYSIS < 15 (0-50); Lipase 70 U/L (23-300); Potassium 3.9 mmol/L (3.4-5.1); Sodium 140 mmol/L (137-145); Total Protein 9.1 g/dL (6.3-8.2)
--- NOTE | 2020-11-23 22:45 | ED.ABDPAIN ---
HPI - Abdominal Pain General Chief Complaint: Abdominal Pain Stated Complaint: EXTREME BLOATING STOMACH PAIN NOT PEEING MUCH Time Seen by Provider: 11/23/20 22:11 Source: patient Mode of arrival: Ambulatory Limitations: no limitations History of Present Illness HPI narrative: 50-year-old female smoker with history of hypothyroid presents with a chief complaint of gradually worsening, severe abdominal pain and bloating over the course of the day. Her pain is worse with motion and improves with rest. She is nauseated but denies any vomiting. She is passing gas and has not had a bowel movement in a few days. She has been having difficulty urinating as well. She denies any dysuria, frequency or urgency. She denies any fever or chills. She has never had an abdominal surgery. She was recently admitted with a small-bowel obstruction and had a complete resolution of symptoms without any specific interventions. MD complaint: abdominal pain Onset (ago): day(s) Pain Consistency: constant Location: diffuse Severity: severe Quality: cramping and aching Radiation: none Relieving factors: nothing Exacerbating factors: movement Associated symptoms: nausea and constipation Related Data Home Medications Medication Instructions Recorded Confirmed levothyroxine [Synthroid] 112 mcg PO QDAY 11/13/20 11/13/20 Previous Rx's Medication Instructions Recorded ciprofloxacin HCl 500 mg PO Q12H #10 tab 11/14/20 Allergies Allergy/AdvReac Type Severity Reaction Status Date / Time sulfamethoxazole Allergy Intermediate FACIAL Verified 11/12/20 22:45 [From Bactrim] RASH AND SWELLING trimethoprim [From Bactrim] Allergy Intermediate FACIAL Verified 11/12/20 22:45 RASH AND SWELLING Penicillins [PENICILLINS] Allergy Unknown Verified 11/12/20 22:45 ENVIROMENTAL ALLERGIES Allergy Unknown ECZEMA Uncoded 11/12/20 22:45 Review of Systems Constitutional Constitutional: Denies chills, Denies fatigue, Denies fever(s), Denies frequent falls, Denies lethargy and Denies weakness Eyes Eyes: Denies change in vision, Denies eye discharge, Denies irritation and Denies loss of vision ENT Ears, Nose, Mouth, and Throat: Denies change in voice, Denies dizziness, Denies neck pain, Denies sore throat and Denies throat swelling Cardiovascular Cardiovascular: Denies chest pain, Denies irregular heart rhythm, Denies lightheadedness, Denies palpitations, Denies dyspnea, Denies dyspnea on exertion and Denies orthopnea Respiratory Respiratory: Denies cough, Denies dyspnea, Denies dyspnea on exertion and Denies wheezing Gastrointestinal Gastrointestinal: Reports abdominal pain, Denies change in bowel habits, Denies diarrhea, Reports nausea and Denies vomiting Musculoskeletal Musculoskeletal: Denies neck pain and Denies numbness Integumentary/Breasts Skin/Breast: Denies pruritus, Denies erythema, Denies rash and Denies wounds Neurologic Neurologic: Denies behavioral changes, Denies confusion, Denies dizziness, Denies frequent falls, Denies loss of vision, Denies numbness and Denies weakness Psychiatric Psychiatric: Denies anxiety, Denies behavioral changes, Denies confusion, Denies depression, Denies homicidal ideation and Denies suicidal ideation Endocrine Endocrine: Denies fatigue, Denies flushing and Denies palpitations Hematologic/Lymphatic Hematologic/Lymphatic: Denies easy bruising Allergic/Immunologic Allergic/Immunologic: Denies urticaria, Denies throat swelling and Denies wheezing Patient History Medical History Depression Hyperlipidemia Hypertension Hyperthyroidism Peptic ulcer disease (~12/2016) Seizure (~10/2012) Substance abuse Surgical History Status post knee surgery Social History household members: spouse Smoking Status: Current every day smoker alcohol intake: former Smoking Status: Current every day smoker Substance Use Type: does not use Exam Narrative Exam Narrative: GENERAL: [50] year old patient appears stated age. Well-nourished, well-developed patient, in mild distress. Obviously uncomfortable, rubbing her abdomen HEAD: Atraumatic. Normocephalic. EYES: Pupils equal round and reactive. Extraocular motions intact. No scleral icterus. No injection or drainage. ENT: Nose without bleeding, purulent drainage. Throat without erythema, tonsillar hypertrophy or exudate. Airway patent. NECK: Trachea midline. Non tender CARDIOVASCULAR: Regular rate and rhythm without murmurs, gallops, or rubs. RESPIRATORY: Clear to auscultation. Breath sounds equal bilaterally. No wheezes, rales, or rhonchi. GASTROINTESTINAL: Abdomen soft, generalized tenderness with decreased bowel sounds throughout, nondistended. EXTREMITIES: No edema or joint tenderness. BACK: Nontender without deformity or crepitance. No flank tenderness. NEURO: AOx3. SKIN: No rash or erythema of visible areas Initial Vital Signs Initial Vital Signs: Vital Signs Temperature 97.7 F 11/23/20 22:08 Pulse Rate 123 H 11/23/20 22:08 Respiratory Rate 18 11/23/20 22:08 Blood Pressure 126/85 11/23/20 22:08 Pulse Oximetry 99 11/23/20 22:08 Course Orders Ordered: ED Orders 11/23/20 22:25 Complete Blood Count AUTO DIFF Stat Comprehensive Metabolic Panel Stat Lipase Stat Partial Thromboplastin Time Stat Prothrombin Time INR Stat 11/23/20 22:29 EKG-12 Lead Stat 11/23/20 22:47 XR acute abdomen series Stat 11/24/20 00:02 CT abdomen pelvis w con Stat 11/24/20 02:40 COVID19 - ADMIT ([employer] swab/PCR) Stat Acetaminophen (Acetaminophen 325 Mg Tablet) 650 mg PO Q4HR PRN PRN Reason: Fever/Mild Pain (1-3) Bisacodyl (Bisacodyl 10 Mg Supp) 10 mg OK DAILY RUPERT Hydromorphone HCl (Hydromorphone 0.5 Mg Inj) 0.5 mg IV Q4H PRN PRN Reason: Pain, Moderate (4-6) Hydromorphone HCl (Hydromorphone 1 Mg Inj) 1 mg IV Q4H PRN PRN Reason: Pain, Severe (7-10) Sodium Chloride (Normal Saline 0.9%) 1,000 mls @ 100 mls/hr IV CONT RUPERT Ondansetron HCl (Ondansetron 4 Mg/2 Ml Inj) 4 mg IV Q4HR PRN PRN Reason: Nausea And Vomiting Last Admin: 11/23/20 22:51 Dose: 4 mg Documented by: CORY Ondansetron HCl (Ondansetron 4 Mg/2 Ml Inj) 4 mg IV Q4HR PRN PRN Reason: Nausea And Vomiting Pantoprazole Sodium (Pantoprazole 40 Mg Vial) 40 mg IV DAILY RUPERT Discontinued Medications Bisacodyl (Bisacodyl 10 Mg Supp) 10 mg OK NOW ONE Stop: 11/24/20 02:07 Last Admin: 11/24/20 02:40 Dose: 10 mg Documented by: CORY Hydromorphone HCl (Hydromorphone 1 Mg Inj) 1 mg IV NOW ONE Stop: 11/23/20 22:48 Last Admin: 11/23/20 22:51 Dose: 1 mg Documented by: CORY Sodium Chloride (Normal Saline 0.9%) 1,000 mls @ 1,000 mls/hr IV BOLUS ONE Stop: 11/23/20 23:46 Last Infusion: 11/24/20 01:03 Dose: 0 mls/hr Documented by: Admin: 11/23/20 22:51 Dose: 1,000 mls/hr Documented by: CORY Reevaluation(s) Reevaluation #1: Some improvement after Dilaudid Consultations Consultation #1: Call to General surgery (Dr. Hollingsworth) upon receipt of CT scan. She recommends rectal suppository and admission to the hospital, she will write orders. She suggest a likely small bowel follow-through tomorrow Vital Signs Vital signs: Vital Signs - 8 hr 11/23/20 22:08 11/23/20 22:42 11/23/20 22:59 Temperature 97.7 F Pulse Rate 123 H 118 H 101 H Respiratory Rate 18 18 20 Blood Pressure 126/85 126/85 120/81 Pulse Oximetry 99 98 97 11/23/20 23:00 Temperature Pulse Rate 97 H Respiratory Rate 18 Blood Pressure 117/83 Pulse Oximetry 98 MDM - Abdominal Pain Lab Data Result diagrams: 11/23/20 22:25 11/23/20 22:25 Labs: Lab Results 11/23/20 11/23/20 11/23/20 Range/Units 22:25 22:25 22:25 WBC 12.7 H (4.5-11.0) X10^3/uL RBC 4.08 (4.0-5.2) X10^6/uL Hgb 13.3 (12.0-16.0) g/dL Hct 39.6 (36-46) % MCV 97.1 (80-100) fL MCH 32.5 (26-34) PG MCHC 33.5 (30-36) % RDW 13.6 (11.6-14.8) % Plt Count 357 (150-400) X10^3/uL Neut % (Auto) 63.9 (50-75) % Lymph % (Auto) 25.2 (25-40) % Hardin % (Auto) 7.7 (3-14) % Eos % (Auto) 2.1 (2-4) % Baso % (Auto) 1.1 (0-2) % Neut # (Auto) 8100 H (7872-5489) /uL Lymph # (Auto) 3200 (1577-6735) /uL Hardin # (Auto) 1000 H (0-900) /uL Eos # (Auto) 300 (0-450) /uL Baso # (Auto) 100 (0-100) /uL PT 14.7 H (10.1-12.7) SECONDS INR 1.3 (0.9-1.3) APTT 36 (26.4-36.2) SECONDS Sodium 140 (137-145) mmol/L Potassium 3.9 (3.4-5.1) mmol/L Chloride 108 H (98-107) mmol/L Carbon Dioxide 19 L (22-32) mmol/L BUN 18 H (7-17) mg/dL Creatinine 0.66 (0.52-1.04) mg/dL Estimated GFR > 60.0 (>60) mL/min BUN/Creatinine Ratio 27.3 H (6-22) Glucose 117 H (70-100) mg/dL Calcium 11.3 H (8.4-10.2) mg/dL Total Bilirubin 0.4 (0.2-1.3) mg/dL AST 27 (14-36) IU/L ALT 17 (<35) IU/L Alkaline Phosphatase 50 (38-126) U/L Total Protein 9.1 H (6.3-8.2) g/dL Albumin 5.0 (3.5-5.0) g/dL Globulin 4.1 (1.7-4.1) g/dL Albumin/Globulin Ratio 1.2 (1.0-2.8) Lipase 70 (23-300) U/L Point of care testing: Point of Care Testing Test Results Negative Urine Dip Bedside Urine Glucose Negative Bedside Urine Bilirubin - Negative Bedside Urine Ketone - Negative Bedside Urine Occult Blood - Negative Bedside Urine Protein - Negative Bedside Urine Urobilinogen - Negative Bedside Urine Nitrite - Negative Bedside Urine Leukocytes - Negative Esterase Imaging Data Abdominal x-ray: Radiologist's Impression: Large stool burden within ascending transverse and descending colon, no obvious obstruction CT scan - abdomen/pelvis: Radiologist's Impression: Large stool burden throughout the colon, associated small bowel mechanical obstruction without free air fluid. No pneumatosis. Comparison to prior: Large stool burden is new abnormality, small bowel dilatation is similar Discharge Plan Departure Patient Disposition: Admitted as Observation Clinical Impression: Small bowel obstruction Admit Date/Time: 11/24/20 02:10 Admit Provider: Chikis Hollingsworth
--- NOTE | 2020-11-23 22:47 | DI.RAD.S_ITS ---
PROCEDURE: XR ACUTE ABDOMEN SERIES INDICATIONS: Abdominal pain TECHNIQUE: One view chest and two views of the abdomen were acquired. COMPARISON: None. FINDINGS: Surgical changes and devices: None. Chest: Lungs are clear. Heart size is normal. No pleural effusions. No pneumoperitoneum. Abdomen: Large amount of stool seen throughout the colon. No suspicious calcifications. Visualized solid organ contours appear normal. Bones: No suspicious bony lesions. IMPRESSION: Severe fecal loading throughout the colon. No acute cardiopulmonary disease process. Dictated by: Jaelyn Weiss MD, PhD on 11/24/2020 at 8:51 Approved by: Jaelyn Weiss MD, PhD on 11/24/2020 at 8:52
[2020-11-23] MEDS: ONDANSETRON 4 MG/2 ML INJ IV (22:51)
[2020-11-23] MEDS: HYDROMORPHONE 1 MG INJ IV (22:51)
[2020-11-23] MEDS: SODIUM CHLORIDE 0.9% 1,000 ML 1000 ML IV (22:51)
[2020-11-23 22:59] VITALS: BP 120/81; PULSE 101; RESP 20; O2SAT 97
[2020-11-23 23:00] VITALS: BP 117/83; PULSE 97; RESP 18; O2SAT 98
[2020-11-24] VITALS (7 sets, daily range): BP systolic 119–139; BP diastolic 80–92; PULSE 84–107; RESP 16–19; TEMP 36.2–36.6; O2SAT 94–99; BMI 23.6
--- NOTE | 2020-11-24 | DI.RAD.S_ITS ---
PROCEDURE: XR GASTROGRAFIN CHALLENGE COMPARISON: [facility], CT, CT ABDOMEN PELVIS W CON, 11/24/2020, 0:53. INDICATIONS: early small bowel obstruction FINDINGS: Mildly dilated loops of small bowel noted. Loops of small bowel are dilated up to 3.1 centimeters. Contrast material noted in the loops of small bowel. No contrast material identified in colon. Large amount of stool noted in the right colon. IMPRESSION: Mildly dilated loops of small bowel compatible with small-bowel obstruction. No contrast material identified in the colon. Large amount of stool in the right colon concerning for fecal obstipation. Dictated by: Jaelyn Weiss MD, PhD on 11/24/2020 at 14:34 Approved by: Jaelyn Weiss MD, PhD on 11/24/2020 at 14:36
--- NOTE | 2020-11-24 00:02 | DI.CT.S_ITS ---
PROCEDURE: CT ABDOMEN PELVIS W CON INDICATIONS: severe abdominal pain, recent admission for Small bowel obstruction TECHNIQUE: After the administration of intravenous contrast, 5 mm thick sections acquired from the diaphragm to the symphysis. 5 mm coronal and sagittal reformats were acquired. For radiation dose reduction, the following was used: automated exposure control, adjustment of mA and/or kV according to patient size. COMPARISON: [facility], CT, CT ABDOMEN PELVIS W CON, 11/12/2020, 23:20. FINDINGS: Image quality: Excellent. ABDOMEN: Lung bases: Lung bases are clear. Heart size is normal. Solid organs: Liver is normal in size and enhancement. The gallbladder is grossly unremarkable. Biliary system is non dilated. Pancreas enhances normally. Spleen is normal in size and enhancement. No adrenal nodules. Kidneys demonstrate normal size and enhancement, without hydronephrosis. Numerous dilated small bowel loops are present with fluid distension. There is also large amount of stool seen throughout the colon. No definite bowel wall thickening. Specific transition point is not well seen. No free fluid or air. Colonic diverticulosis is seen without evidence of acute complication. Nodes and vessels: No retroperitoneal or mesenteric adenopathy by size criteria. Aorta and inferior vena cava are normal in size. Miscellaneous: No ventral hernias. PELVIS: Genitourinary: Bladder wall thickness is normal. Miscellaneous: No inguinal hernias or adenopathy. Bones: Spondylytic changes and facet arthropathy. Unchanged T12 compression fracture. IMPRESSION: Small-bowel obstruction with grossly unchanged appearance of the small bowel loops since 11/12/20. Large amount of stool seen throughout the colon which is new since the prior study. Findings concordant with the preliminary study interpretation provided at the time of the exam. Additional chronic and incidental findings as above. Dictated by: Minesh Jean Baptiste M.D. on 11/24/2020 at 10:44 Approved by: Minesh Jean Baptiste M.D. on 11/24/2020 at 10:48
[2020-11-24] MEDS: BISACODYL 10 MG SUPP PR ×2 (02:40→08:37)
[2020-11-24] MEDS: SODIUM CHLORIDE 0.9% 1,000 ML 100 ML IV ×2 (03:19→15:55)
[2020-11-24] MEDS: HYDROMORPHONE 1 MG INJ IV ×5 (03:20→20:27)
[2020-11-24 03:39] LABS: COVID19 - ADMIT (NP swab/PCR) Negative (Negative)
[2020-11-24 05:31] LABS: Add Manual Diff / Slide Review NO; Basophils Percent Auto 1.2 % (0-2); Eosinophils Absolute Auto 400 /uL (0-450); Hematocrit 38.1 % (36-46); Hemoglobin 12.6 g/dL (12.0-16.0); Lymphocytes Absolute Auto 2000 /uL (1100-4500); Lymphocytes Percent Auto 21.8 % (25-40); Mean Corpuscular Hemoglobin 32.3 PG (26-34); Monocytes Absolute Auto 800 /uL (0-900); Monocytes Percent Auto 9.1 % (3-14); Neutrophils Absolute Auto 6000 /uL (1500-7000); Neutrophils Percent Auto 63.9 % (50-75); Platelet Count 326 X10^3/uL (150-400); Red Blood Cell Count 3.88 X10^6/uL (4.0-5.2); Red Cell Distribution Width 13.9 % (11.6-14.8); White Blood Cell Count 9.3 X10^3/uL (4.5-11.0)
[2020-11-24 05:32] LABS: Basophils Absolute Auto 100 /uL (0-100)
[2020-11-24 05:39] LABS: BUN Creatinine Ratio 26.9 (6-22); Blood Urea Nitrogen 14 mg/dL (7-17); Calcium 9.9 mg/dL (8.4-10.2); Carbon Dioxide 21 mmol/L (22-32); Chloride 108 mmol/L (98-107); Estimated Glomerular Filt Rate > 60.0 mL/min (>60); Glucose 119 mg/dL (70-100); HEMOLYSIS < 15 (0-50); Magnesium 1.4 mg/dL (1.6-2.3); Phosphorous 4.7 mg/dL (2.5-4.5); Potassium 3.8 mmol/L (3.4-5.1); Sodium 138 mmol/L (137-145)
--- NOTE | 2020-11-24 06:37 | PC.NURSE ---
0630- Patient was able to pass some stool a moderate amount, formed with some mucous noted. Patient stated that her stomach felt very rumbly but otherwise there was no complaints. Patient was able to get some sleep and states she feels a little better.
[2020-11-24] MEDS: ONDANSETRON 4 MG/2 ML INJ IV ×3 (07:48→23:48)
[2020-11-24] MEDS: MAGNESIUM SULFATE 2 GM/50 ML PIGGYBACK IV (07:51)
[2020-11-24] MEDS: PANTOPRAZOLE 40 MG VIAL IV ×2 (08:36→20:27)
--- NOTE | 2020-11-24 09:40 | PC.NURSE ---
Addendum entered by Kathe Lopez R.N. 11/24/20 10:38: pt declines moving bowels but has been up to br x 2 and has flushed each time prior to staff visualization despite instruction not to Original Note: PT ANXIOUS AT BASELINE AND INITIAL ASSESSMENT PT STATES IM NOT LEAVING HERE TODAY AND MY PAIN IS A / DID QUICK PT ASSESSMENT AND BROUGHT PT BOTH IV ZOFRAN FOR C/O NAUSEA AND IV DILAUDID 1MG ( PER PT REQUEST) - PLAN EXPLAINED TO PT IS TO CONTINUE WITH CLEAR LIQUIDS THIS SHIFT AND HAVE A GASTROGRAFFIN CHALLENGE ORDERED BY DR REYEZ- SHE CONSENTS TO THIS AND TOLERATED PO GASTROGRAFFIN WELL- ALSO, MAG ARACELI HUNG AND NS CONTINUES AT 100CC/H- DECLINES TO GET UP AND USE BATHROOM AT THIS TIME - BISOCODYL SUPPOSITORY GIVEN
--- NOTE | 2020-11-24 10:08 | PM.HP.1 ---
History of Present Illness History of Present Illness Date Patient Seen: 11/24/20 Time Patient Seen: 11:48 Chief complaint: EXTREME BLOATING STOMACH PAIN NOT PEEING MUCH Narrative: This is a 50-year-old woman with history of hypothyroidism, who was admitted to the hospital 10 days ago with acute obstructive symptoms with resolved on their own. She has never had abdominal surgery. She has never had a colonoscopy. She was also found to have a UTI at that point, and was treated with antibiotics. She came into the ER again last night with similar symptoms. She had a CT scan which showed low-grade partial small-bowel obstruction and a colon full of stool. She was admitted for IV fluids, pain control, and small-bowel follow-through. She has passed some gas and stool, but reports that she feels very full and uncomfortable. She denies any history of peptic ulcer disease (per review of the old chart, she did have a significant peptic ulcer in the duodenum in 2017). ROS: She denies dysuria, epigastric pain, heartburn. Thirteen system review is otherwise negative other than as mentioned below and in HPI. PE: GENERAL: Well groomed and cooperative. In mild distress due to abdominal discomfort and anxiety. Appears stated age. Answers questions promptly and appropriately. Vital signs noted. HENT: Normocephalic, atraumatic. Hearing intact. EYES: Conjunctiva pink, sclera white, no periorbital swelling. CARDIOVASCULAR: Regular rate. No pedal edema. RESPIRATORY: Non-tachypneic, breathing comfortably on room air. GASTROINTESTINAL: Abdomen is distended, diffusely tender in the lower and mid abdomen GENITALURINARY: No flank tenderness. MUSCULOSKELETAL: Equal tone and mass bilaterally. SKIN: Warm, dry, soft, appropriate color for ethnicity. No other lesions, rashes, or wounds. NEURO: Alert and Oriented X 3. No gross sensory deficits, or cognitive issues. PSYCH: Appropriate affect and mood. Patient History Medical History Depression Hyperlipidemia Hypertension Hyperthyroidism Peptic ulcer disease (~12/2016) Seizure (~10/2012) Substance abuse Surgical History Status post knee surgery Family & Social History Social History: household members spouse Prior Living Arrangements House Safety & Behavioral: Feels Safe in Current Yes Environment Been Physically Hurt or No Threatened By a Person Suicidal Ideation Description None Suicide Plan Description No Plan Tobacco & Substance use: Tobacco type cigarettes Smoking Status Current every day smoker alcohol intake former Substance Use Type does not use Meds Home Medications and Allergies Home Medications Medication Instructions Recorded Confirmed Type levothyroxine [Synthroid] 112 mcg PO QDAY 11/13/20 11/24/20 History doxycycline hyclate 100 mg PO BID 11/24/20 11/24/20 History hydrocortisone See Rx Instructions .ROUTE .COMPLEX 11/24/20 11/24/20 History Allergies Allergy/AdvReac Type Severity Reaction Status Date / Time sulfamethoxazole Allergy Intermediate FACIAL Verified 11/12/20 22:45 [From Bactrim] RASH AND SWELLING trimethoprim [From Bactrim] Allergy Intermediate FACIAL Verified 11/12/20 22:45 RASH AND SWELLING Penicillins [PENICILLINS] Allergy Unknown Verified 11/12/20 22:45 Exam Vital Signs (past 8 hours): - 11/24/20 02:48 11/24/20 04:08 11/24/20 08:00 Temperature 97.8 F 97.6 F Pulse Rate 84 87 89 Respiratory Rate 16 18 18 Blood Pressure 125/83 130/90 122/84 Pulse Oximetry 98 99 99 Oxygen Delivery Method Room Air Oxygen Flow Rate [address] scan - abdomen: Radiologist's impression: [address] [id number] Scan ReportSigned Patient: Radha Maldonado MMR#: [id number]: 1970Acct:[id number]/Sex: 50 / FDate of Service: 11/24/20Loc: [id number] Number: [id number] Procedure: CT abdomen pelvis w con Ordering Provider: Ten Sousa D.O. PROCEDURE: CT ABDOMEN PELVIS W CON INDICATIONS: severe abdominal pain, recent admission for Small bowel obstruction TECHNIQUE: After the administration of intravenous contrast, 5 mm thick sections acquired from the diaphragm to the symphysis. 5 mm coronal and sagittal reformats were acquired. For radiation dose reduction, the following was used: automated exposure control, adjustment of mA and/or kV according to patient size. COMPARISON: [facility], CT, CT ABDOMEN PELVIS W CON, 11/12/2020, 23:20. FINDINGS: Image quality: Excellent. ABDOMEN: Lung bases: Lung bases are clear. Heart size is normal. Solid organs: Liver is normal in size and enhancement. The gallbladder is grossly unremarkable. Biliary system is non dilated. Pancreas enhances normally. Spleen is normal in size and enhancement. No adrenal nodules. Kidneys demonstrate normal size and enhancement, without hydronephrosis. Numerous dilated small bowel loops are present with fluid distension. There is also large amount of stool seen throughout the colon. No definite bowel wall thickening. Specific transition point is not well seen. No free fluid or air. Colonic diverticulosis is seen without evidence of acute complication. Nodes and vessels: No retroperitoneal or mesenteric adenopathy by size criteria. Aorta and inferior vena cava are normal in size. Miscellaneous: No ventral hernias. PELVIS: Genitourinary: Bladder wall thickness is normal. Miscellaneous: No inguinal hernias or adenopathy. Bones: Spondylytic changes and facet arthropathy. Unchanged T12 compression fracture. IMPRESSION: Small-bowel obstruction with grossly unchanged appearance of the small bowel loops since 11/12/20. Large amount of stool seen throughout the colon which is new since the prior study. Findings concordant with the preliminary study interpretation provided at the time of the exam. Additional chronic and incidental findings as above. Dictated by: Minesh Jean Baptiste M.D. on 11/24/2020 at 10:44 Approved by: Minesh Jean Baptiste M.D. on 11/24/2020 at 10:48 Labs Result Diagrams: 11/24/20 05:01 11/24/20 05:01 Labs: Laboratory Results - last 24 hr 11/23/20 11/23/20 11/23/20 22:25 22:25 22:25 WBC 12.7 H RBC 4.08 Hgb 13.3 Hct 39.6 MCV 97.1 MCH 32.5 MCHC 33.5 RDW 13.6 Plt Count 357 Neut % (Auto) 63.9 Lymph % (Auto) 25.2 Frio % (Auto) 7.7 Eos % (Auto) 2.1 Baso % (Auto) 1.1 Neut # (Auto) 8100 H Lymph # (Auto) 3200 Frio # (Auto) 1000 H Eos # (Auto) 300 Baso # (Auto) 100 PT 14.7 H INR 1.3 APTT 36 Sodium 140 Potassium 3.9 Chloride 108 H Carbon Dioxide 19 L BUN 18 H Creatinine 0.66 Estimated GFR > 60.0 BUN/Creatinine Ratio 27.3 H Glucose 117 H Calcium 11.3 H Phosphorus Magnesium Total Bilirubin 0.4 AST 27 ALT 17 Alkaline Phosphatase 50 Total Protein 9.1 H Albumin 5.0 Globulin 4.1 Albumin/Globulin Ratio 1.2 Lipase 70 Nasal Screen MRSA (PCR) SARS-CoV-2 (PCR) 11/24/20 11/24/20 11/24/20 02:40 03:15 05:01 WBC 9.3 RBC 3.88 L Hgb 12.6 Hct 38.1 MCV 98.0 MCH 32.3 MCHC 33.0 RDW 13.9 Plt Count 326 Neut % (Auto) 63.9 Lymph % (Auto) 21.8 L Frio % (Auto) 9.1 Eos % (Auto) 4.0 Baso % (Auto) 1.2 Neut # (Auto) 6000 Lymph # (Auto) 2000 Frio # (Auto) 800 Eos # (Auto) 400 Baso # (Auto) 100 PT INR APTT Sodium Potassium Chloride Carbon Dioxide BUN Creatinine Estimated GFR BUN/Creatinine Ratio Glucose Calcium Phosphorus Magnesium Total Bilirubin AST ALT Alkaline Phosphatase Total Protein Albumin Globulin Albumin/Globulin Ratio Lipase Nasal Screen MRSA (PCR) Negative for mrsa SARS-CoV-2 (PCR) Negative 11/24/20 05:01 WBC RBC Hgb Hct MCV MCH MCHC RDW Plt Count Neut % (Auto) Lymph % (Auto) Frio % (Auto) Eos % (Auto) Baso % (Auto) Neut # (Auto) Lymph # (Auto) Frio # (Auto) Eos # (Auto) Baso # (Auto) PT INR APTT Sodium 138 Potassium 3.8 Chloride 108 H Carbon Dioxide 21 L BUN 14 Creatinine 0.52 Estimated GFR > 60.0 BUN/Creatinine Ratio 26.9 H Glucose 119 H Calcium 9.9 Phosphorus 4.7 H Magnesium 1.4 L Total Bilirubin AST ALT Alkaline Phosphatase Total Protein Albumin Globulin Albumin/Globulin Ratio Lipase Nasal Screen MRSA (PCR) SARS-CoV-2 (PCR) Assessment & Plan Assessment and plan (1) Small bowel obstruction: Status: Acute (2) Chronic constipation: Status: Acute (3) Hypothyroidism: Qualifiers: Hypothyroidism type: unspecified Qualified Code(s): E03.9 - Hypothyroidism, unspecified Status: Acute (4) Peptic ulcer: Status: None Assessment & Plan narrative: This is a 50-year-old woman with history of hypothyroidism, chronic constipation, and PSBO symptoms which on a prior admission have resolved on their own. She feels that her symptoms are much worse this time, and her pain is much more significant. She has started taking oral contrast for small-bowel follow-through, and has tolerated that fairly well. She says she feels very full, and is only passed a little bit of stool. She is still having significant pain and anxiety. She does not recall having history of peptic ulcers, but according to review of the old chart she has had peptic ulcers that which diagnosed and treated by Dr. Mcgraw in the past. At this point her pain is not well controlled, and narcotics for likely to contribute to her constipation. Her magnesium was only 1.4 this morning. We have replace that with 2 g of IV Mag. At this point I will give her limited doses of Toradol and Ativan to help with her pain, and help to reduce the narcotic requirement. We will double her PPI to 40 mg b.i.d. IV to reduce the risk of peptic ulcer recurrence in the setting of using Toradol. If her PSBO symptoms do not resolve with nonsurgical intervention, we may consider laparoscopic or possible open abdominal exploration to identify a cause. If her symptoms resolve with Gastrografin small-bowel follow-through, we will consider sending her home on a stronger bowel regimen, and plan on colonoscopy as an outpatient. Plan: Clear liquid diet Ambulate as tolerated Small-bowel follow-through Home meds Pain meds as needed Toradol as needed Double dose PPI COVID-19 COVID-19 status: Negative Result date/Date tested (Pos, Neg/Pending): 11/24/20 Time Spent With Patient Time with patient: Greater than 35 minutes Quality VTE Deep Vein Thrombosis/Pulmonary Embolism Present on Admission: No MIPS - Admit Advanced Care Plan / Current Medications Measures: #47 ? Advanced Care Plan Clinician documentation instruction: document at admission. [] I confirmed that the patient's Advance Care Plan is present, code status is documented, or surrogate decision maker is listed in the patient?s medical record. [SATISFIES MIPS PERFORMANCE] If Yes, Stop Here [] The patient?s Advance Care plan is not present because: (select) [MIPS PERFORMANCE EXCEPTION/EXCLUSION] [] I confirmed today that the patient does not wish or was not able to name a surrogate decision maker or provide an Advance Care Plan. [] Hospice care is currently being provided or has been provided this calendar year [] I did NOT confirm today the presence of an Advance Care Plan or surrogate decision maker documented within the patient's medical record. [DOES NOT SATISFY MIPS PERFORMANCE] #130 - Documentation of Current Medications in the Medical Record Clinician documentation instruction: use macro the first time you see a patient. [] I have utilized all available immediate resources to obtain, update, or review the patient?s current medications. [SATISFIES MIPS PERFORMANCE] If Yes, Stop Here [] The patient is not eligible for medication reconciliation; the patient is in an emergent medical situation where delaying treatment would jeopardize the patient?s health. [MIPS PERFORMANCE EXCEPTION/EXCLUSION] [] I did NOT confirm, update or review the patient's current list of medications today. [DOES NOT SATISFY MIPS PERFORMANCE] MIPS - CL Central Venous Catheter Placement Measure: #76 ? Prevention of Central Venous Catheter (CVC) ? Related Bloodstream Infection Clinician documentation instruction: use macro every time you place a central line. [] All elements of Maximal Sterile Barrier Technique, including hand hygiene, skin prep, and sterile ultrasound technique (if used) were followed. [SATISFIES MIPS PERFORMANCE] If Yes, Stop Here [] If ?No?, the medical reason all elements were NOT used for medical reason [] (ex. emergent condition). [] Maximal Sterile Barrier Technique was not followed, no reason provided [DOES NOT SATISFY MIPS PERFORMANCE] MIPS - DC Heart Failure Measures: #5 - Heart Failure (HF): Angiotensin-Converting Enzyme (ROHAN) Inhibitor or Angiotensin Receptor Loni (ARB) Therapy for Left Ventricular Systolic Dysfunction (LVSD) and #8 - Heart Failure (HF): Beta-Loni Therapy for Left Ventricular Systolic Dysfunction (LVSD) Clinician documentation instruction: use macro at every CHF discharge. [] The patient has current or prior documentation of left ventricular ejection fraction (LVEF) less than 40%, or moderate or severely depressed left ventricular systolic function. Answer both: [SATISFIES MIPS PERFORMANCE] [] The patient was prescribed or already taking an Angiotensin-Converting Enzyme (ROHAN) Inhibitor, or Angiotensin Receptor Loni (ARB). [] The patient was prescribed or already taking a beta-loni. If Yes to Both, Stop Here [] Patient not prescribed/taking: [MIPS PERFORMANCE EXCEPTION/EXCLUSION] [] ROHAN or ARB for medical/patient/system reason(s) including [] (ex. allergy, intolerance, contraindication) [] Beta-loni for medical/patient/system reason(s) including [] (ex. allergy, intolerance, contraindication) [] Patient not prescribed/taking: [DOES NOT SATISFY MIPS PERFORMANCE] [] ROHAN or ARB, no reason given [] Beta-loni, no reason given
[2020-11-24] MEDS: LORazepam 2 MG/ML INJ 0.5 MG IV ×2 (10:55→15:23)
--- NOTE | 2020-11-24 11:24 | CM.DANOTE ---
DCP: Case received, EMR reviewed and met with patient. Introduced self and role. Was able to obtain information from patient regarding her baseline activity status prior to hospitalization. DCP assessment completed with information currently available. Patient is a 50 year old female who admitted early this morning to the care of the hospitalist/surgical team. PCP: Dr. Velásquez. Payer: confirmed: [facility]. Patient came to the hospital via private vehicle secondary to having abdominal distension, as well as nausea. She was also having difficulty with urinating. Patient had been here at the hospital recently for a small bowel obstruction. She is here for a small bowel follow through. Met with patient in her room. She is alert and oriented. She resides here in [place] with her spouse, Laith. She is employed at [employer], which she stated is her 's company. She is independent at her baseline, as far as mobility. P: DCP to continue to follow. Patient should be able to go home when she is deemed medically stable. Kelly Bauer RN/Digital Imaging Specialist
[2020-11-24] MEDS: KETOROLAC 30 MG/ML VIAL 15 MG IV ×2 (11:39→19:12)
[2020-11-24 14:41] LABS: Magnesium 2.2 mg/dL (1.6-2.3)
--- NOTE | 2020-11-24 18:11 | PC.NURSE ---
Addendum entered by Kristine Ulloa R.N. 11/24/20 18:40: Pt ambulated additional 260 feet with OFFICE WORKER assistance, tolerated well, back in bed at this time Original Note: Evening shift note: Pt extremely anxious at beginning of shift, c/o pain 10/10 (not due for pain medications at this time), administered IV Ativan per pt request, explained the plan was to have pt ambulate for 20 minutes TID to help bowels to move on their own. Pt very upset that she is in so much pain and is not able to ambulate. Was able to ambulate to the toilet in an attempt to have a BM, pt stated that she was unsuccessful, but had flushed the toilet before this nurse could look to see her output, educated pt regarding leaving the output for evaluation after voiding.Chela did get out of bed with the assistance of her and ambulated approximately 50 feet before getting back into bed crying. At this time 1mg dilaudid was administered per order for pain 10/10. At this time pt fell to sleep, when she woke up she asked to discuss what the plan was for her care tonight. This nurse explained that we are trying to get pt to move bowels to improve pain, ambulation, bowel rest, fluids and limiting opiate pain medications would help with that. Pt states that she will not lay here in pain and that she wants all of the pain medication she can have to help with her pain. At this time pt is not due any pain medication, during this discussion pt went in and out of sleep. Pt had no further needs at this time, bed low and locked, call light within reach, will continue to monitor.
[2020-11-24] MEDS: SODIUM CHLORIDE 0.9% FLUSH 10 ML IV (20:27)
[2020-11-24] MEDS: HEPARIN 5,000 UNIT/ML VIAL 5000 UNIT SUBCUT (20:27)
[2020-11-25] VITALS (7 sets, daily range): BP systolic 113–147; BP diastolic 72–82; PULSE 98–117; RESP 16–19; TEMP 36.2–37.3; O2SAT 94–98; BMI 23.6
[2020-11-25] MEDS: HYDROMORPHONE 1 MG INJ IV ×5 (00:53→20:33)
[2020-11-25] MEDS: SODIUM CHLORIDE 0.9% 1,000 ML 100 ML IV ×3 (02:03→20:39)
[2020-11-25] MEDS: KETOROLAC 30 MG/ML VIAL 15 MG IV (05:01)
[2020-11-25] MEDS: ONDANSETRON 4 MG/2 ML INJ IV ×4 (05:01→16:54)
[2020-11-25] MEDS: LORazepam 2 MG/ML INJ 1 MG IV ×5 (05:02→20:34)
[2020-11-25 05:29] LABS: Add Manual Diff / Slide Review NO; Basophils Absolute Auto 100 /uL (0-100); Basophils Percent Auto 0.6 % (0-2); Eosinophils Absolute Auto 300 /uL (0-450); Eosinophils Percent Auto 2.7 % (2-4); Hematocrit 37.2 % (36-46); Hemoglobin 12.4 g/dL (12.0-16.0); Lymphocytes Absolute Auto 1800 /uL (1100-4500); Lymphocytes Percent Auto 14.7 % (25-40); Mean Corpuscular HGB Conc 33.2 % (30-36); Mean Corpuscular Hemoglobin 32.2 PG (26-34); Mean Corpuscular Volume 96.7 fL (80-100); Monocytes Absolute Auto 800 /uL (0-900); Monocytes Percent Auto 6.3 % (3-14); Neutrophils Absolute Auto 9400 /uL (1500-7000); Neutrophils Percent Auto 75.7 % (50-75); Platelet Count 310 X10^3/uL (150-400); Red Blood Cell Count 3.85 X10^6/uL (4.0-5.2); Red Cell Distribution Width 13.7 % (11.6-14.8); White Blood Cell Count 12.4 X10^3/uL (4.5-11.0)
[2020-11-25 05:36] LABS: Blood Urea Nitrogen 14 mg/dL (7-17); Calcium 9.8 mg/dL (8.4-10.2); Carbon Dioxide 25 mmol/L (22-32); Chloride 102 mmol/L (98-107); Estimated Glomerular Filt Rate > 60.0 mL/min (>60); Glucose 123 mg/dL (70-100); HEMOLYSIS < 15 (0-50); Magnesium 1.7 mg/dL (1.6-2.3); Phosphorous 4.3 mg/dL (2.5-4.5); Potassium 3.9 mmol/L (3.4-5.1); Sodium 135 mmol/L (137-145)
--- NOTE | 2020-11-25 06:41 | PC.NURSE ---
Shift change: Pt resting calmly in bed. A&Ox4. Pt educated on plan of care and despite being aware of opiates contributing to constipation pt reports desire for as much pain medication as possible. Pt encouraged to drink fluids and ambulate. Abdomen is distended and tender with no bowl tones. No other remarkable findings upon assessment. VSS. 1145: One episode of 900mL dark brown emesis without stool. Pt reports recent PO intake of water and cranberry juice. Nausea resolves with 4mg zofran IV. 0053: Pt given 1mg diluadid for 8/10 abdominal pain. Pt sleeping before and after med administration. 0430: Pt voided and walked with steady gait with SNOWBOARD DESIGNER around the unit. Pt drinks prune juice. 0500: Pt develops nausea and given zofran. No emesis. Pt reports abd. pain and is given ativan and toradol. Pt educated on why she is being transitioned off opiates and onto alternative pain meds for pain management in order to alleviate constipation. Pt is irritated and RN reinforces that ativan and toradol treat pain despite not being opiates. Pt sleeping after medication administration.
--- NOTE | 2020-11-25 07:00 | DI.RAD.S_ITS ---
PROCEDURE: XR KUB INDICATIONS: dilated small bowel, passage of contrast TECHNIQUE: One view of the abdomen acquired. COMPARISON: [facility], CR, XR GASTROGRAFIN CHALLENGE, 11/24/2020, 12:00. FINDINGS: Surgical changes and devices: None. Bowel: Multiple dilated loops of small bowel noted in the left abdomen that measure up to 4.7 centimeters. Contrast material noted in multiple loops of small bowel. Large amount of stool noted in the right colon. No contrast material identified within the colon in the current study Soft tissues: No suspicious abdominal calcifications. Visualized solid organ contours appear normal in size. Bones: No suspicious bony lesions. IMPRESSION: Dilated loops of small bowel compatible with small-bowel obstruction. Contrast material continues to progress to loops of dilated small bowel suggesting partial obstruction. Large amount of stool in the right colon concerning for fecal obstipation. Dictated by: Jaelyn Weiss MD, PhD on 11/25/2020 at 7:53 Approved by: Jaelyn Weiss MD, PhD on 11/25/2020 at 7:54
[2020-11-25] MEDS: PANTOPRAZOLE 40 MG VIAL IV ×2 (08:12→20:33)
[2020-11-25] MEDS: MAGNESIUM SULFATE 2 GM/50 ML PIGGYBACK IV (08:25)
--- NOTE | 2020-11-25 10:01 | PM.PN.1 ---
Subjective Subjective Date Patient Seen: 11/25/20 Time Patient Seen: 10:02 Interval history: Pt passing some stool, but vomited a significant amount of her gastrografin last night. She c/o severe bloating and abdominal pain. Exam Vital Signs (past 8 hours): - 11/25/20 04:00 11/25/20 08:00 Temperature 97.1 F L 98.4 F Pulse Rate 117 H 102 H Respiratory Rate 18 19 Blood Pressure 118/72 127/81 Pulse Oximetry 97 94 Oxygen Delivery Method Room Air Oxygen Flow Rate 0 Narrative Exam Narrative: GENERAL: Alert, dozing, intermittently appears to be in mild distress due to abdominal discomfort. Appears stated age. Answers questions promptly and appropriately. Vital signs noted. HENT: Normocephalic, atraumatic. Hearing intact. EYES: Conjunctiva pink, sclera white, no periorbital swelling. CARDIOVASCULAR: Regular rate. No pedal edema. RESPIRATORY: Non-tachypneic, breathing comfortably on room air. GASTROINTESTINAL: Abdomen quite distended, diffuse mild tenderness, lower abdomen worse than upper GENITALURINARY: No flank tenderness. MUSCULOSKELETAL: Equal tone and mass bilaterally. SKIN: Warm, dry, soft, appropriate color for ethnicity. No other lesions, rashes, or wounds. NEURO: Alert and Oriented X 3. No gross sensory deficits, or cognitive issues. PSYCH: Appropriate affect and mood. Objective Imaging Abdominal x-ray: Radiologist's impression: [address] [id number] ReportSigned Patient: Radha Maldonado MMR#: [id number]: 1970Acct:[id number]/Sex: 50 / FDate of Service: 11/25/20Loc: [id number] Number: [id number] Procedure: XR KUB Ordering Provider: Chikis Hollingsworth MD PROCEDURE: XR KUB INDICATIONS: dilated small bowel, passage of contrast TECHNIQUE: One view of the abdomen acquired. [facility], 11/24/2020, 12:00. FINDINGS: Surgical changes and devices: None. Bowel: Multiple dilated loops of small bowel noted in the left abdomen that measure up to 4.7 centimeters. Contrast material noted in multiple loops of small bowel. Large amount of stool noted in the right colon. No contrast material identified within the colon in the current study Soft tissues: No suspicious abdominal calcifications. Visualized solid organ contours appear normal in size. Bones: No suspicious bony lesions. IMPRESSION: Dilated loops of small bowel compatible with small-bowel obstruction. Contrast material continues to progress to loops of dilated small bowel suggesting partial obstruction. Large amount of stool in the right colon concerning for fecal obstipation. Dictated by: Jaelyn Weiss MD, PhD on 11/25/2020 at 7:53 Approved by: Jaelyn Weiss MD, PhD on 11/25/2020 at 7:54 Labs Result Diagrams: 11/25/20 04:56 11/25/20 04:56 Labs: Laboratory Results - last 24 hr 11/24/20 11/25/20 11/25/20 14:05 04:56 04:56 WBC 12.4 H RBC 3.85 L Hgb 12.4 Hct 37.2 MCV 96.7 MCH 32.2 MCHC 33.2 RDW 13.7 Plt Count 310 Neut % (Auto) 75.7 H Lymph % (Auto) 14.7 L [place] % (Auto) 6.3 Eos % (Auto) 2.7 Baso % (Auto) 0.6 Neut # (Auto) 9400 H Lymph # (Auto) 1800 [place] # (Auto) 800 Eos # (Auto) 300 Baso # (Auto) 100 Sodium 135 L Potassium 3.9 Chloride 102 Carbon Dioxide 25 BUN 14 Creatinine 0.61 Estimated GFR > 60.0 BUN/Creatinine Ratio 23.0 H Glucose 123 H Calcium 9.8 Phosphorus 4.3 Magnesium 2.2 1.7 [facility] Depression Hyperlipidemia Hypertension Hyperthyroidism Peptic ulcer disease (~12/2016) Seizure (~10/2012) Substance abuse Surgical History Status post knee surgery Social History household members: spouse Smoking Status: Current every day smoker alcohol intake: former Assessment & Plan Assessment and plan (1) Small bowel obstruction: Status: Acute (2) Chronic constipation: Status: Acute (3) Hypothyroidism: Qualifiers: Hypothyroidism type: unspecified Qualified Code(s): E03.9 - Hypothyroidism, unspecified Status: Acute (4) Peptic ulcer: Status: None (5) Fecal impaction of colon: Status: Acute Assessment & Plan narrative: This is a 50-year-old woman with history of hypothyroidism, chronic constipation, and PSBO symptoms which on a prior admission have resolved on their own. She was given oral gastrografin yesterday, and she vomited a significant amount of that last evening. On x-ray it did appear that the contrast moved through most of her small bowel, but not into the colon. She has passed several small and medium sized stools, but her xray this morning reveals that she still has a moderate amount of stool in the right side of the colon. I spoke with her at length this morning regarding the imaging findings, and possible etiologies of her constipation/obstruction symptoms. Give that her CT scan ten days ago did not show this huge amount of stool in the right colon, I do not believe that the large stool burden which is there now has been there more than a week or so. She may have poor colonic motility at baseline which was overwhelmed in the setting of a colonic ileus from her UTI (diagnosed at last admission, but resolved on recheck this admission), and being more sedentary due to not feeling well. It does not appear that she has a mechanical obstruction of neoplastic or adhesive cause. At this point, I offered her the option of taking Golytely from above, or having a colonoscopy from below to try and disimpact the right colon. She prefers to avoid the colonoscopy if possible at this point. She would like to take the PO Golytely. I let her know that we could put an NG tube down and give further GoLYTELY through the NG tube as well. She would like to try drinking at this point, and if she is not able to make any progress with that, we will consider colonoscopy. I have emphasized to her the importance of ambulation. She says she is willing to walk around as much as she can. Plan: Golytely -- sip throughout the day Ambulate as tolerated Home meds Pain meds as needed Toradol as needed Double dose PPI COVID-19 COVID-19 status: Negative Result date/Date tested (Pos, Neg/Pending): 11/24/20 Time Spent With Patient Time with patient: Greater than 35 minutes Quality VTE Deep Vein Thrombosis/Pulmonary Embolism Present on Admission: No MIPS - Admit Advanced Care Plan / Current Medications Measures: #47 ? Advanced Care Plan Clinician documentation instruction: document at admission. [] I confirmed that the patient's Advance Care Plan is present, code status is documented, or surrogate decision maker is listed in the patient?s medical record. [SATISFIES MIPS PERFORMANCE] If Yes, Stop Here [] The patient?s Advance Care plan is not present because: (select) [MIPS PERFORMANCE EXCEPTION/EXCLUSION] [] I confirmed today that the patient does not wish or was not able to name a surrogate decision maker or provide an Advance Care Plan. [] Hospice care is currently being provided or has been provided this calendar year [] I did NOT confirm today the presence of an Advance Care Plan or surrogate decision maker documented within the patient's medical record. [DOES NOT SATISFY MIPS PERFORMANCE] #130 - Documentation of Current Medications in the Medical Record Clinician documentation instruction: use macro the first time you see a patient. [] I have utilized all available immediate resources to obtain, update, or review the patient?s current medications. [SATISFIES MIPS PERFORMANCE] If Yes, Stop Here [] The patient is not eligible for medication reconciliation; the patient is in an emergent medical situation where delaying treatment would jeopardize the patient?s health. [MIPS PERFORMANCE EXCEPTION/EXCLUSION] [] I did NOT confirm, update or review the patient's current list of medications today. [DOES NOT SATISFY MIPS PERFORMANCE] MIPS - CL Central Venous Catheter Placement Measure: #76 ? Prevention of Central Venous Catheter (CVC) ? Related Bloodstream Infection Clinician documentation instruction: use macro every time you place a central line. [] All elements of Maximal Sterile Barrier Technique, including hand hygiene, skin prep, and sterile ultrasound technique (if used) were followed. [SATISFIES MIPS PERFORMANCE] If Yes, Stop Here [] If ?No?, the medical reason all elements were NOT used for medical reason [] (ex. emergent condition). [] Maximal Sterile Barrier Technique was not followed, no reason provided [DOES NOT SATISFY MIPS PERFORMANCE] MIPS - DC Heart Failure Measures: #5 - Heart Failure (HF): Angiotensin-Converting Enzyme (ROHAN) Inhibitor or Angiotensin Receptor Loni (ARB) Therapy for Left Ventricular Systolic Dysfunction (LVSD) and #8 - Heart Failure (HF): Beta-Loni Therapy for Left Ventricular Systolic Dysfunction (LVSD) Clinician documentation instruction: use macro at every CHF discharge. [] The patient has current or prior documentation of left ventricular ejection fraction (LVEF) less than 40%, or moderate or severely depressed left ventricular systolic function. Answer both: [SATISFIES MIPS PERFORMANCE] [] The patient was prescribed or already taking an Angiotensin-Converting Enzyme (ROHAN) Inhibitor, or Angiotensin Receptor Loni (ARB). [] The patient was prescribed or already taking a beta-loni. If Yes to Both, Stop Here [] Patient not prescribed/taking: [MIPS PERFORMANCE EXCEPTION/EXCLUSION] [] ROHAN or ARB for medical/patient/system reason(s) including [] (ex. allergy, intolerance, contraindication) [] Beta-loni for medical/patient/system reason(s) including [] (ex. allergy, intolerance, contraindication) [] Patient not prescribed/taking: [DOES NOT SATISFY MIPS PERFORMANCE] [] ROHAN or ARB, no reason given [] Beta-loni, no reason given
[2020-11-25] MEDS: METOCLOPRAMIDE 10 MG/2 ML INJ 5 MG IV ×3 (10:06→18:01)
[2020-11-25] MEDS: PEG3350/SOD SULF,BICARB,CL/KCL 4,000 ML SOLUTION 4000 ML PO (10:07)
[2020-11-25] MEDS: SODIUM CHLORIDE 0.9% FLUSH 10 ML IV ×2 (10:07→20:33)
--- NOTE | 2020-11-25 14:11 | PC.NURSE ---
Addendum entered by Kathe Lopez R.N. 11/25/20 15:19: called to pt's room and she was up on bsc with no void- she was tearful and upset stating I need a specialist, I need this place to be more proactive explained at length with another nurse present in the room that this is, in fact the treatment for a bowel obstruction, but her continued noncompliance is the orders we have. paged Dr. Hollingsworth and reviewed this scenario with her- Dr. Lara, wished to remind pt of the options given this am - no new orders received a this time Original Note: PT INITIALLY TEARFUL AND ANXIOUS STATING THIS IS NO HELP AT ALL, I MAY WELL GO HOME SWITCHED FROM CLEAR LIQUIDS TO NPO TO ALLOW BOWEL REST. PT REFUSED BOTH SUPPOSITORY AND THEN FLEETS ENEMA. SHE WAS STARTED ON GOLYTELY ( NOT BOWEL PREP ) BUT TO SIP ON THROUGHOUT THE DAY - SHE INITIALLY TOOK FULL PAPER CUP AND SAID SHE WOULD CONSENT TO GULPING A CUP AN HOUR - SHE HAS BEEN SOMEWHAT COMPLIANT WITH THIS REQUEST AND THIS SHIFT HAS TAKEN TOTAL OF 700CC- NO BOWEL MOVEMENT OF YET. ALSO, ENCOURAGED FREQUENT AMBULATION AND THIS RN AND PT CAME TO AGREEMENT OF WALKING AROUND THE NURSES STATION Q 1 HOUR DURING DAYSHIFT- AGAIN SHE HAS BEEN NONCOMPLIANT WITH THIS TASK - MAKING 3 LOOPS IN HALLWAY THIS SHIFT.
[2020-11-25] MEDS: FLEETS ENEMA 1 EACH PR ×2 (16:07→16:14)
[2020-11-26] VITALS (14 sets, daily range): BP systolic 100–140; BP diastolic 70–92; PULSE 91–112; RESP 12–23; TEMP 35.6–37.1; O2SAT 90–100
[2020-11-26] MEDS: METOCLOPRAMIDE 10 MG/2 ML INJ 5 MG IV ×3 (00:35→11:47)
[2020-11-26] MEDS: LORazepam 2 MG/ML INJ 1 MG IV ×3 (00:36→10:27)
[2020-11-26] MEDS: HYDROMORPHONE 1 MG INJ IV ×3 (00:37→11:47)
[2020-11-26] MEDS: SODIUM CHLORIDE 0.9% FLUSH 10 ML IV ×2 (00:42→07:36)
[2020-11-26 05:24] LABS: Add Manual Diff / Slide Review NO; Basophils Absolute Auto 100 /uL (0-100); Basophils Percent Auto 0.9 % (0-2); Eosinophils Absolute Auto 400 /uL (0-450); Eosinophils Percent Auto 4.6 % (2-4); Hematocrit 33.7 % (36-46); Hemoglobin 11.1 g/dL (12.0-16.0); Lymphocytes Absolute Auto 1900 /uL (1100-4500); Lymphocytes Percent Auto 20.4 % (25-40); Mean Corpuscular HGB Conc 32.9 % (30-36); Mean Corpuscular Volume 97.4 fL (80-100); Monocytes Absolute Auto 700 /uL (0-900); Monocytes Percent Auto 8.1 % (3-14); Neutrophils Absolute Auto 6000 /uL (1500-7000); Platelet Count 267 X10^3/uL (150-400); Red Blood Cell Count 3.45 X10^6/uL (4.0-5.2); Red Cell Distribution Width 13.6 % (11.6-14.8); White Blood Cell Count 9.1 X10^3/uL (4.5-11.0)
[2020-11-26 05:44] LABS: BUN Creatinine Ratio 15.2 (6-22); Blood Urea Nitrogen 7 mg/dL (7-17); Calcium 9.1 mg/dL (8.4-10.2); Carbon Dioxide 25 mmol/L (22-32); Chloride 105 mmol/L (98-107); Estimated Glomerular Filt Rate > 60.0 mL/min (>60); Glucose 95 mg/dL (70-100); HEMOLYSIS < 15 (0-50); Magnesium 1.4 mg/dL (1.6-2.3); Phosphorous 3.1 mg/dL (2.5-4.5); Potassium 3.9 mmol/L (3.4-5.1); Sodium 136 mmol/L (137-145)
[2020-11-26 06:11] LABS: Thyroid Stimulating Hormone 6.01 uIU/mL (0.47-4.68)
--- NOTE | 2020-11-26 06:39 | PC.NURSE ---
Shift change: Pt is irritable, A&Ox4 and cooperative. Respirations are regular and unlabored and skin is pink, warm and dry. Abdomen is distended with absent bowl tones. Pt reports abdominal pain and requests pain and anxiety medication. 0000: Pt medicated with 1mg ativan IV, 1mg dilaudid IV and 5mg reglan IV. Pt made NPO at this time and educated on what to expect tomorrow for her colonoscopy. Pt verbalizes and understanding and falls asleep soon after med administration. 0130: Pt SpO2 85% while sleeping. Pt placed on 2L wiht resulting SpO2 100%. Pt educated on how IV pain medication can temorarily decrease respiratory drive. 0315: Pt pressed call light and when RN enters room pt is barely able to keep her eyes open when talking to RN. Pt requests medication for anxiety related to upcoming surgery. RN comforts patient verbally and provides education on procedure. Pt educated on why she cannot receive more ativan in relation to giving it too close to the previous dose. Pt responds, Oh and closes her eyes. Pt appears to be in no apparent distress. 0600: Pt ambulates with quick, steady gait to bathroom. Pt reports being anxious and requests ativan. Pt given 1mg of ativan and speaks. This RN speaks with pt for third time about what she will expect to happen today with the colonoscopy. This RN assists pt with calling her spouse to have him as emotional support this AM. Pt slept for most of shift, ambulated to the bathroom to void x3. Only needed 2L NC for 1 hr post administration of 1mg dilaudid and 1mg ativan. RA for the rest of the shift at 98%. No BM, no emesis.
[2020-11-26] MEDS: SODIUM CHLORIDE 0.9% 1,000 ML 100 ML IV (06:43)
[2020-11-26] MEDS: PANTOPRAZOLE 40 MG VIAL IV ×2 (07:36→22:00)
[2020-11-26] MEDS: MAGNESIUM SULFATE 2 GM/50 ML PIGGYBACK IV (07:36)
--- NOTE | 2020-11-26 08:23 | SUR.HOLD ---
Pt to be transferred back to room due to equiptment issues in endo room.
--- NOTE | 2020-11-26 08:37 | PM.PN.1 ---
Subjective Subjective Date Patient Seen: 11/26/20 Time Patient Seen: 08:37 Interval history: Patient is still very bloated, not passing any gas, passed a small amount of stool after enemas. No real change in condition. Exam Vital Signs (past 8 hours): - 11/26/20 03:00 Temperature 97.0 F L Pulse Rate 99 H Respiratory Rate 16 Blood Pressure 124/82 Pulse Oximetry 100 Oxygen Delivery Method Room Air Oxygen Flow Rate 0 Narrative Exam Narrative: GENERAL: Alert, dozing, intermittently appears to be in mild distress due to abdominal discomfort. Appears stated age. Answers questions promptly and appropriately. Vital signs noted. HENT: Normocephalic, atraumatic. Hearing intact. EYES: Conjunctiva pink, sclera white, no periorbital swelling. CARDIOVASCULAR: Regular rate. No pedal edema. RESPIRATORY: Non-tachypneic, breathing comfortably on room air. GASTROINTESTINAL: Abdomen quite distended, diffuse mild tenderness, lower abdomen worse than upper GENITALURINARY: No flank tenderness. MUSCULOSKELETAL: Equal tone and mass bilaterally. SKIN: Warm, dry, soft, appropriate color for ethnicity. No other lesions, rashes, or wounds. NEURO: Alert and Oriented X 3. No gross sensory deficits, or cognitive issues. PSYCH: Appropriate affect and mood. Objective Labs Result Diagrams: 11/26/20 04:52 11/26/20 04:52 Labs: Laboratory Results - last 24 hr 11/26/20 11/26/20 11/26/20 04:52 04:52 04:52 WBC 9.1 RBC 3.45 L Hgb 11.1 L Hct 33.7 L MCV 97.4 MCH 32.0 MCHC 32.9 RDW 13.6 Plt Count 267 Neut % (Auto) 66.0 Lymph % (Auto) 20.4 L [place] % (Auto) 8.1 Eos % (Auto) 4.6 H Baso % (Auto) 0.9 Neut # (Auto) 6000 Lymph # (Auto) 1900 [place] # (Auto) 700 Eos # (Auto) 400 Baso # (Auto) 100 Sodium 136 L Potassium 3.9 Chloride 105 Carbon Dioxide 25 BUN 7 Creatinine 0.46 L Estimated GFR > 60.0 BUN/Creatinine Ratio 15.2 Glucose 95 Calcium 9.1 Phosphorus 3.1 D Magnesium 1.4 L TSH 6.01 H D [facility] Medical History Depression Hyperlipidemia Hypertension Hyperthyroidism Peptic ulcer disease (~12/2016) Seizure (~10/2012) Substance abuse Surgical History Status post knee surgery Social History household members: spouse Smoking Status: Current every day smoker alcohol intake: former Assessment & Plan Assessment and plan (1) Small bowel obstruction: Status: Acute (2) Chronic constipation: Status: Acute (3) Hypothyroidism: Qualifiers: Hypothyroidism type: unspecified Qualified Code(s): E03.9 - Hypothyroidism, unspecified Status: Acute (4) Peptic ulcer: Status: None (5) Fecal impaction of colon: Status: Acute Assessment & Plan narrative: This is a 50-year-old woman with history of hypothyroidism, chronic constipation, and PSBO symptoms which on a prior admission have resolved on their own. She has been given a trial of Gastrografin, a trial of oral GoLYTELY, enemas, and suppositories, with no relief of her obstruction. Based on her imaging it is likely a bezoar, which will potentially be amenable to endoscopic removal, but if not will ultimately require surgical removal. I discussed with the patient and her this morning. They would like to attempt removal with colonoscopy, and then discuss again the other potential procedures rather than moving straight to operating. We will plan for colonoscopy in her general anesthesia this afternoon. Risks and benefits of the procedure were discussed with the patient her including risk of bleeding, perforation, need for emergency surgery, inability to obstruct endoscopically, need for prolonged hospital stay, risks of anesthesia. Patient her desire to proceed with the colonoscopy procedure today. Plan: NPO except for meds, IV fluids Ambulate as tolerated Home meds Pain meds as needed Double dose PPI COVID-19 COVID-19 status: Negative Result date/Date tested (Pos, Neg/Pending): 11/24/20 Time Spent With Patient Time with patient: Greater than 35 minutes Quality VTE Deep Vein Thrombosis/Pulmonary Embolism Present on Admission: No
--- NOTE | 2020-11-26 13:17 | PC.NURSE ---
Addendum entered by Minesh Randall R.N. 11/26/20 14:51: Pt left 229 via w/c to pre op for colonoscopy. Spouse at pt's side at this time. Original Note: Pt was brought to preop this AM for colonoscopy. Unable to undergo procedure due to equipment malfunction and was thus brought back to room. Plan is to go back to endo around 1500 today for procedure. Pt was updated and verbalizes understanding re plan of care. Notified spouse via phone regarding plan of care per request. Discussed alternative methods to promote gastric motility such as progressive ambulation. Explained to pt that Dr. Hollingsworth placed an order recommending 20 minutes of walking TID. Pt ambulation refused x3 attempts. On last attempt, states she feels like we are leveraging this intervention against her. Asked pt to explain her understanding of this intervention to which she states to increase bowel motility. She further states she feels that she is not getting her scope procedure due to her unwillingness to walk. Reminded pt that her scope procedure is slated to happen around 1500 and that walking and her procedure time are unrelated. She verbalizes understanding of this. She was noted to make 3 laps around the icu with a brisk, steady gait, no AD, and independently. Ambulation time ~2 minutes. Pt reports pain 10/10 approximately q4hr requesting dilaudid. Post med administration, pt is noted to be sleeping with even/unlabored RR. Asked pt if there was anything more I could do to make her more comfortable to which she states no. Will continue to reinforce education regarding plan of care and interventions as pt is able/willing.
[2020-11-26] MEDS: SODIUM CHLORIDE 0.9% 1,000 ML 150 ML IV ×2 (15:17→20:00)
--- NOTE | 2020-11-26 19:25 | P.OP.ENDO_ITS ---
Operative Date/Time/Diagnoses Date of procedure: 11/26/20 Time of procedure: 19:25 Pre-op diagnosis: Cecal impaction due to bezoar Post-op diagnosis: other (same) Procedure & Clinicians Study performed: Colonoscopy Disimpaction x 3 hours Same procedure as scheduled: Yes Indications: Cecal obstruction due to intraluminal impacted fiberous stool consistent with cecal bezoar. Because the patient was obstructed and this was expected to be a long procedure, the anesthesiologist was absolutely necessary for ETT rapid sequence intubation to protect the airway and to manage the patient's sedation during this prolonged and high risk procedure. High risk for perforation and aspiration. Surgeon: Chikis Hollingsworth Procedure Notes SCOAP/Timeout: Performed Procedure in detail: Patient was brought in the room and general anesthesia was induced patient was intubated by Dr. Mccloud. The patient was then placed in left lateral decubitus position with all bony prominences padded. A time-out was performed and then the procedure was begun. A rectal exam was performed revealing no abnormalities. The colonoscope was then introduced to the rectum and advanced gradually through the colon. The rectum and sigmoid were relativ mayi clean, and then when we reached the descending colon and splenic flexure we began to see thick fibrous spongy green stool material. It was very elastic, and I was able tediously and gradually to suction and pull it down gradually into the rectum, and then manually remove it from the rectum. The stool came out in casts with evidence of the markings of tenia and haustra of the colon. 3 hours were spent tedious lay irrigating and breaking up these very elastic and fibrous casts of stool and suctioning them down to the rectum. I eventually reach the ascending colon, and there was a massive cast of spongy fibrous material which I could not entirely removed. I irrigated with several L of water and pulled out as much of the stool as I could. At this point we had reached about the 3 hour fina I felt that the majority of the offending obstructing stool have been removed, and the remaining, and stool had been irrigated and broken up and would have a high chance of being able to move th rough the colon on its own. At this point the procedure was concluded, the scope was withdrawn from the patient, and the patient was awakened from anesthesia. The patient tolerated the procedure well and was transferred to the PACU in stable condition. Findings: other findings (cecal bezoar; impacted stool in the transverse colon) Specimen(s): none sent Complications: none Impression: Dense casts of fibrous very elastic stool material consistent with a fecal bezoar were found throughout the colon, with the largest in ascending colon Post-procedure Recommendations: Other recommendation (return to hospital floor, and incourage oral fluids and ambulation; follow stool output; reimage in the morning) Follow up: as needed Disposition: PACU
[2020-11-26] MEDS: ONDANSETRON 4 MG/2 ML INJ IV (20:18)
[2020-11-26] MEDS: SODIUM CHLORIDE 0.9% IV (20:57)
[2020-11-26] MEDS: CEFOTETAN IV (20:57)
[2020-11-26] MEDS: METOCLOPRAMIDE 10 MG/2 ML INJ IV (22:21)
--- NOTE | 2020-11-26 22:57 | PC.NURSE ---
Shift change: At 1500 pt is taken to the OR with spouse for colonoscopy. Pt appears calm and in no distress. Respirations are regular and unlabored. Skin is dry and pink. Pt's spouse, Laith, waits in pt's room. He is calm and appropriate. 1999: Pt return from PACU. Report recieved from Irving Zuñiga RN. Spouse, Laith has left prior to her arrival. Pt is agitated, restless and has difficulty following directions. Pt initially would not talk to staff. Pt impulsively attempts to get out of bed and does not communicate needs to staff. Pt moves all four extremities with full strength. Respirations are unlabored and even. Lung sounds clear. On 2L NC at 100%. Pt's speech is partly incoherent. This RN speaks to pt repeatedly re-orienting pt and reinforces new and previous education in regards to post op treatment and safety measures that need to be implemented including bed rest and O2 administration for post sedation. 2099: Pt is drowsy and continues to have scattered thought and garbled speech. requesting to go home. Pt informed that she can not go home until she has fully recovered from the sedation that she received in the OR. Bed alarm on, call light in reach and this RN monitors from RN station with pt in view. 2129: Pt ambulated to bathroom with unsteady gait requiring one hand assist from RN. Pt denies dizziness and voids 800cc dark cloudy urine. [id number]: Pt speech is no longer incoherent or garbled. Pt repeatedly calls spouse on the phone. Pt's spouse calls the Rn station informing staff that he does not intent to come in the hospital tonight. Pt notified and she continues to call spouse on the phone in the room. Pt will press call light and call out Help [facility] same time as the call light alarm. This RN informs pt that she does not need to call out if she is pressing the call light. Pt does not verbalize an understanding and instead asks to call her spouse again. This RN helps pt dial phone. Pt has been ambulating to bathroom to void multiple times with steady gait and denies dizziness. Pt given education for all medications being given and has explicitly asked permission to administer each medication that is ordered.
[2020-11-27] MEDS: ONDANSETRON 4 MG/2 ML INJ IV ×3 (00:12→08:07)
[2020-11-27] MEDS: HYDROMORPHONE 1 MG INJ IV ×3 (00:12→08:00)
[2020-11-27] MEDS: LORazepam 2 MG/ML INJ 1 MG IV ×4 (00:13→11:54)
--- NOTE | 2020-11-27 03:28 | PC.NURSE ---
PT SEEMED DISORIENTED UPON INITIAL ASSESSMENT NOT SURE WHAT TIME IT WAS EVEN STATING THAT STAFF ( PRESENTLY IN ROOM ) TOLD HER IT WAS 0700 AM- THIS WAS UNTRUE CLINICAL REVIEWER HAD INTRODUCED SELF AND EXPLAINED THAT SHE WILL BE HELPING WITH HER CARE UNTIL 0700, WITNESSED BY THIS RN. PT DID AMBULATE X 1 AROUND THE ICU THEN DECLINED ANY FURTHER ACTIVITY. CONTINUES TO C/O PAIN/ANXIETY/NAUSEA FREQUENTLY AND REQUESTS RX PRIOR TO DOSE BEING AVAILABLE TO GIVE- TOLERATING CLEAR LIQUIDS
[2020-11-27 04:50] LABS: Add Manual Diff / Slide Review NO; Basophils Absolute Auto 0 /uL (0-100); Basophils Percent Auto 0.2 % (0-2); Eosinophils Absolute Auto 0 /uL (0-450); Hematocrit 33.7 % (36-46); Lymphocytes Absolute Auto 600 /uL (1100-4500); Lymphocytes Percent Auto 5.6 % (25-40); Mean Corpuscular HGB Conc 32.7 % (30-36); Mean Corpuscular Hemoglobin 31.8 PG (26-34); Mean Corpuscular Volume 97.2 fL (80-100); Monocytes Absolute Auto 200 /uL (0-900); Monocytes Percent Auto 1.9 % (3-14); Neutrophils Absolute Auto 10600 /uL (1500-7000); Neutrophils Percent Auto 92.3 % (50-75); Platelet Count 252 X10^3/uL (150-400); Red Blood Cell Count 3.47 X10^6/uL (4.0-5.2); Red Cell Distribution Width 13.5 % (11.6-14.8); White Blood Cell Count 11.5 X10^3/uL (4.5-11.0)
[2020-11-27 05:05] LABS: BUN Creatinine Ratio 11.1 (6-22); Blood Urea Nitrogen 4 mg/dL (7-17); Calcium 8.6 mg/dL (8.4-10.2); Carbon Dioxide 26 mmol/L (22-32); Chloride 106 mmol/L (98-107); Estimated Glomerular Filt Rate > 60.0 mL/min (>60); Glucose 148 mg/dL (70-100); HEMOLYSIS < 15 (0-50); Magnesium 1.4 mg/dL (1.6-2.3); Phosphorous 2.6 mg/dL (2.5-4.5); Potassium 3.5 mmol/L (3.4-5.1); Sodium 137 mmol/L (137-145)
[2020-11-27] MEDS: METOCLOPRAMIDE 10 MG/2 ML INJ IV ×2 (07:03→14:21)
[2020-11-27] MEDS: MAGNESIUM SULFATE 2 GM/50 ML PIGGYBACK IV (07:09)
[2020-11-27] MEDS: PANTOPRAZOLE 40 MG VIAL IV (08:07)
[2020-11-27 08:30] VITALS: BP 139/86; PULSE 93; RESP 14; TEMP 36.2; O2SAT 98
--- NOTE | 2020-11-27 09:13 | PC.NURSE ---
Addendum entered by Alexandria Paris R.N. 11/27/20 14:04: Pt remains tearful often this shift, does not eleaborate when asked about ways we can help, pain control remains biggest complaint. Pt refusing to walk in halls. IVF stopped per request. Pt continues to attempt to flush toilet multiple times with voids, numerous attempts to reeducate Pt about need to monitor output. I will tell you if I do anything. Double hats in BR. Dr Allan into see Pt. Order obtained for mineral oil PO. Given to Pt. At recheck, Pt is sleeping, no s/sx of distress. BA active. Call light in reach. Original Note: Assumed care of Pt @ 0300 Pt has been reluctant to do much of any activity. Refused to ambulate, except in room, up to BR. BA active. Pt is tearful, and reports pain to abd 10/10 with intermittent nausea.Medicated per emar.
[2020-11-27] MEDS: LEVOTHYROXINE 112 MCG TABLET PO (10:50)
[2020-11-27] MEDS: HYDROMORPHONE 0.5 MG INJ IV (11:53)
[2020-11-27] MEDS: MINERAL OIL 473 ML OIL 60 ML PO (11:56)
[2020-11-27 16:00] VITALS: BP 119/58; PULSE 111; RESP 17; TEMP 37.1; O2SAT 98
--- NOTE | 2020-11-27 16:26 | CM.DPC ---
DCP: continues: EMR reviewed and noted the extensive 3+ hour colonoscopy procedure yesterday with removal of cecal obstruction from extensive fibrous bezoar. Pt today is still in pain, distress and not ambulating much. No surgeon note yet for today. DCP team to continue to follow as POC unfolds.
--- NOTE | 2020-11-27 21:04 | P.DS_ITS ---
History of Present Illness History of Present Illness Date Patient Seen: 11/27/20 Time Patient Seen: 19:31 Chief complaint: EXTREME BLOATING STOMACH PAIN NOT PEEING MUCH Narrative: Patient is woman admitted with abdominal bloating and pain. She was recently hospitalized with a small-bowel obstruction after Gastrografin challenge began having bowel movements and seemed to resolve the obstructive process. However she has been unable to move her bowels and has decreased amount of urine. She has been eating poorly because it increases abdominal pain and distension. She has been to the hospital Discharge Providers Provider Date of admission: 11/24/20 02:10 Discharge Date: 11/27/20 Primary care physician: Zurdo Velásquez ND Discharge provider: Brent Allan MD Summary Hospital Course Discharge Diagnosis: Fecal stasis with obstructive symptoms. Urinary tract infection under treatment prior to admission. Cultured urine was negative at the time of admission. Hypothyroidism Hospital Course: Patient had an NG placed she was given Gastrografin with limited benefit. She underwent a bowel prep for colonoscopy. She had very little result. Patient underwent colonoscopy and was found to have very unusual stool almost mucoid and fibrous in nature causing cast of the colon essentially preventing passage of stool. A large amount of this was may move during the colonoscopy. The following day she was given castor oil with an excellent result and passage of this material. She felt much better. She was still little distended she thought but overall was feeling almost normal. On further evaluation and discussion with her it turns out she has been taking at least 2 tbsp of Metamucil 3 or 4 times a day. Her states that she has gone through 1 large and 2 smaller containers of Metamucil over short period of time. This actually may explain the odd findings of the consistency of her stool given the gelatinous nature of the stool and the gelatinous nature that Metamuci l causes. She was instructed to stop the use of Metamucil and gradually resume a normal diet. Status at Discharge Cognitive/behavioral status at discharge: at baseline, oriented Functional status at discharge: independent ambulation Overall status at discharge: patient is progressing back to baseline Time Spent with Patient Time spent: Greater than 30 minutes Exam Vital Signs (past 8 hours): - 11/27/20 16:00 Temperature 98.8 F Pulse Rate 111 H Respiratory Rate 17 Blood Pressure 119/58 L Pulse Oximetry 98 Oxygen Delivery Method Room Air Oxygen Flow Rate 0 Narrative Exam Narrative: Patient was seen earlier in the day and again at the time of discharge. Lungs are clear. Her abdomen is mildly distended but soft and nontender. Vital signs are noted. Objective Labs Result Diagrams: 11/27/20 04:18 11/27/20 04:18 Labs: Laboratory Results - last 24 hr 11/27/20 11/27/20 04:18 04:18 WBC 11.5 H RBC 3.47 L Hgb 11.0 L Hct 33.7 L MCV 97.2 MCH 31.8 MCHC 32.7 RDW 13.5 Plt Count 252 Neut % (Auto) 92.3 H D Lymph % (Auto) 5.6 L Beauregard % (Auto) 1.9 L Eos % (Auto) 0.0 L Baso % (Auto) 0.2 Neut # (Auto) 09378 H Lymph # (Auto) 600 L Bea[place]gard # (Auto) 200 Eos # (Auto) 0 Baso # (Auto) 0 Sodium 137 Potassium 3.5 Chloride 106 Carbon Dioxide 26 BUN 4 L Creatinine 0.36 L Estimated GFR > 60.0 BUN/Creatinine Ratio 11.1 Glucose 148 H Calcium 8.6 Phosphorus 2.6 Magnesium 1.4 L PFSH Medical History Depression Hyperlipidemia Hypertension Hyperthyroidism Peptic ulcer disease (~12/2016) Seizure (~10/2012) Substance abuse Surgical History Status post knee surgery Social History household members: spouse Smoking Status: Current every day smoker alcohol intake: former Discharge Plan Discharge Plan Patient Disposition: Home Provider Discharge Comment: Gradually resume your normal diet. Stop using Metamucil. Start or continue taking omeprazole daily. Discharge orders & Medications Prescriptions: Continued levothyroxine [Synthroid] 125 MCG tablet 112 mcg PO QDAY RF: 0 doxycycline hyclate 100 mg Tablet 100 mg PO BID RF: 0 hydrocortisone 5 mg tablet See Rx Instructions .ROUTE .COMPLEX RF: 0 Follow up/Referrals: Zurdo Velásquez ND [Primary Care Provider] - Diet/Activity/Treatments Diet: Diet as Tolerated Activity: As tolerated Skin/Wound/Dressing Care Report to your healthcare provider any signs of infection, such as:: chills, fever and increased pain Discharge Data Primary Care Provider: Zurdo Velásquez Quality VTE Deep Vein Thrombosis/Pulmonary Embolism Present on Admission: No
== END 2020-11-27 20:15 | disposition home or self-care (01) | DRG 394 ==
LOC: ED 22:11 → ICU 11-24 03:06 → AC 11-25 14:59
PROVIDERS: Admitting Provider Surgery; Emergency Provider Emergency Medicine; PCP Naturopath; Visit Provider Surgery
PROC: 0DJD8ZZ Inspection of Lower Intestinal Tract, Via Natural or Artificial Opening Endoscopic (ICD-10-PCS; CPT 45378; principal; 2020-11-26 09:15)
DX: T18.4XXA Foreign body in colon, initial encounter (principal); K56.600 Partial intestinal obstruction, unspecified as to cause; F17.210 Nicotine dependence, cigarettes, uncomplicated; E03.9 Hypothyroidism, unspecified; K59.09 Other constipation; T47.4X5A Adverse effect of other laxatives, initial encounter; Z20.822 Contact with and (suspected) exposure to COVID-19; X58.XXXA Exposure to other specified factors, initial encounter
CPT/HCPCS: 36415; 45378; 51798; 74018; 74022; 74177; 80048; 80053; 81003; 81025; 83690; 83735; 84100; 84443; 85025; 85610; 85730; 87635; 87797; 93005; 93010; 96361; 96374; 96375; 99222; 99232; 99238; 99284; 99285; C9113; J0330; J1100; J1170; J1644; J1885; J2060; J2250; J2405; J2704; J2765; J3010; J3475; Q9967

== ENCOUNTER → 2020-12-02 15:12 | Outpatient (CLI) | payer OTHER, SELFPAY ==
[2020-11-25 19:14] VITALS: BMI 23.6
--- NOTE | 2020-12-02 15:15 | DI.RAD.S_ITS ---
PROCEDURE: XR ACUTE ABDOMEN SERIES INDICATIONS: follow up from hospitalization TECHNIQUE: One view chest and two views of the abdomen were acquired. COMPARISON: [facility], CR, XR ACUTE ABDOMEN SERIES, 11/23/2020, 23:07. FINDINGS: Surgical changes and devices: None. Chest: Lungs are clear. Heart size is normal. No pleural effusions. No pneumoperitoneum. Abdomen: Bowel gas pattern is normal. No suspicious calcifications. Visualized solid organ contours appear normal. Bones: No suspicious bony lesions. IMPRESSION: Normal for age, source of current pain symptoms is not seen. Dictated by: Yves Diaz M.D. on 12/02/2020 at 15:35 Approved by: Yves Diaz M.D. on 12/02/2020 at 15:35
== END ==
PROVIDERS: PCP Naturopath; Referring Provider Surgery; Visit Provider Surgery
DX: K56.41 Fecal impaction (principal)
CPT/HCPCS: 74022

== ENCOUNTER → 2020-12-22 13:44 | Outpatient (CLI) | payer OTHER, SELFPAY ==
[2020-11-25 19:14] VITALS: BMI 23.6
[2020-12-22 15:34] LABS: Adenovirus F 40/41 Not Detected (Not Detect); Astrovirus Not Detected (Not Detect); Campylobacter Not Detected (Not Detect); Clostridium difficile toxin AB Not Detected (Not Detect); Cryptosporidium Not Detected (Not Detect); Cyclospora cayetanensis Not Detected (Not Detect); Entamoeba histolytica Not Detected (Not Detect); Enteroaggregative E.coli Not Detected (Not Detect); Enteropathogenic E.coli Not Detected (Not Detect); Enterotoxigenic E.coli It/st Not Detected (Not Detect); Giardia lamblia Not Detected (Not Detect); Norovirus GI/GII Not Detected (Not Detect); Plesiomonsa shigelloides Not Detected (Not Detect); Rotavirus A Not Detected (Not Detect); Salmonella Not Detected (Not Detect); Sapovirus Not Detected (Not Detect); Shiga-like toxin-prod E.coli Not Detected (Not Detect); Shigella/Enteroinvasive E.coli Not Detected (Not Detect); Vibrio Not Detected (Not Detect); Vibrio cholerae Not Detected (Not Detect); Yersinia enterocolitica Not Detected (Not Detect)
== END ==
PROVIDERS: PCP Naturopath; Referring Provider Specialist; Visit Provider Specialist
DX: R19.7 Diarrhea, unspecified (principal)
CPT/HCPCS: 87507